=== PATIENT | male | born 1955 | race Two or more races ===

== ENCOUNTER 2020-06-14 07:21 | Outpatient (REF) | payer OTHER, SELFPAY ==
[2020-06-14 09:38] LABS: MANUAL DIFF FLAG NO
[2020-06-14 09:40] LABS: Basophils Absolute Auto 0.1 X10*3/uL (0.0-0.2); Basophils Percent Auto 1.3 % (0-2); Eosinophils Absolute Auto 0.2 X10*3/uL (0.0-0.4); Eosinophils Percent Auto 4.3 % (0-4); Hematocrit 40.6 % (42-52); Hemoglobin 13.3 g/dl (14.0-18.0); Imm Gran Abs Auto 0.01 X10*3/uL (0.00-0.03); Imm Gran Pct Auto 0.2 % (0.0-0.4); Lymphocytes Absolute Auto 1.6 X10*3/uL (1.2-4.9); Lymphocytes Percent Auto 29.5 % (20-40); Mean Corpuscular HGB Conc 32.8 g/dl (31.0-36.0); Mean Corpuscular Hemoglobin 30.1 pg (27.0-33.0); Mean Corpuscular Volume 91.9 fL (80-98); Mean Platelet Volume 11.5 fL (9.4-12.4); Monocytes Absolute Auto 0.4 X10*3/uL (0.1-1.2); Monocytes Percent Auto 7.6 % (2-11); Neutrophils Absolute Auto 3.1 X10*3/uL (2.0-8.3); Neutrophils Percent Auto 57.1 % (45-73); Platelet Count 188 X10*3/uL (160-400); Red Blood Count 4.42 X10*6/uL (4.60-5.80); White Blood Count 5.4 X10*3/uL (4.8-10.8)
[2020-06-14 09:58] LABS: Alanine Aminotransferase 37 U/L (0-40); Albumin Level 4.5 g/dL (3.5-5.0); Alkaline Phosphatase 53 U/L (39-117); Anion Gap 11 (12-20); Aspartate Amino Transferase 30 U/L (5-37); Bilirubin Total 0.7 mg/dL (0.0-1.0); Blood Urea Nitrogen 29 mg/dL (9-16); Calcium 9.4 mg/dL (8.4-10.2); Carbon Dioxide 31 mmol/L (22-29); Chloride 100 mmol/L (96-108); Cholesterol 157 mg/dL; Estimated Glomerular Filt Rate > 60; Glucose Fasting 92 mg/dL (60-99); HDL Cholesterol 56 mg/dL; LDL Cholesterol Calculated 89 mg/dl; Potassium 4.4 mmol/l (3.3-5.1); Sodium 138 mmol/L (135-145); Total Protein 7.4 g/dL (6.5-8.0); Triglycerides 64 mg/dL
[2020-06-14 10:19] LABS: Prostate Specific Antigen 0.24 ng/mL (<0.05-4.0)
== END 2020-06-14 07:22 | disposition home or self-care (01) ==
LOC: HO.LAB 07:21
PROVIDERS: Visit Provider Internal Medicine Medical Oncology
DX: E78.2 Mixed hyperlipidemia (principal); I10 Essential (primary) hypertension
CPT/HCPCS: 36415; 80053; 80061; 84153; 85025

== ENCOUNTER 2020-11-22 05:55 | Outpatient (REF) | payer OTHER, SELFPAY ==
[2020-11-22 06:28] LABS: MANUAL DIFF FLAG NO
[2020-11-22 06:40] LABS: Basophils Absolute Auto 0.1 X10*3/uL (0.0-0.2); Basophils Percent Auto 0.9 % (0-2); Eosinophils Absolute Auto 0.4 X10*3/uL (0.0-0.4); Eosinophils Percent Auto 6.3 % (0-4); Hematocrit 41.7 % (42-52); Hemoglobin 13.6 g/dl (14.0-18.0); Imm Gran Abs Auto 0.01 X10*3/uL (0.00-0.03); Imm Gran Pct Auto 0.2 % (0.0-0.4); Lymphocytes Absolute Auto 1.7 X10*3/uL (1.2-4.9); Lymphocytes Percent Auto 29.6 % (20-40); Mean Corpuscular HGB Conc 32.6 g/dl (31.0-36.0); Mean Corpuscular Hemoglobin 30.4 pg (27.0-33.0); Mean Corpuscular Volume 93.1 fL (80-98); Mean Platelet Volume 11.2 fL (9.4-12.4); Monocytes Absolute Auto 0.6 X10*3/uL (0.1-1.2); Monocytes Percent Auto 10.7 % (2-11); Neutrophils Absolute Auto 3.1 X10*3/uL (2.0-8.3); Neutrophils Percent Auto 52.3 % (45-73); Platelet Count 199 X10*3/uL (160-400); Red Blood Count 4.48 X10*6/uL (4.60-5.80); Red Cell Distribution Width 13.6 % (11.0-16.0); White Blood Count 5.9 X10*3/uL (4.8-10.8)
[2020-11-22 07:10] LABS: Alanine Aminotransferase 44 U/L (0-40); Albumin Level 4.6 g/dL (3.5-5.0); Alkaline Phosphatase 61 U/L (39-117); Anion Gap 14 (12-20); Aspartate Amino Transferase 36 U/L (5-37); Bilirubin Total 0.6 mg/dL (0.0-1.0); Blood Urea Nitrogen 24 mg/dL (9-16); Calcium 10.5 mg/dL (8.4-10.2); Carbon Dioxide 29 mmol/L (22-29); Chloride 103 mmol/L (96-108); Cholesterol 171 mg/dL; Estimated Glomerular Filt Rate > 60; Glucose Fasting 101 mg/dL (60-99); HDL Cholesterol 55 mg/dL; LDL Cholesterol Calculated 99 mg/dl; Potassium 4.8 mmol/L (3.3-5.1); Sodium 141 mmol/L (135-145); Total Protein 7.6 g/dL (6.5-8.0); Triglycerides 86 mg/dL
== END 2020-11-22 05:56 | disposition home or self-care (01) ==
LOC: HO.LAB 05:55
PROVIDERS: PCP Internal Medicine Medical Oncology; Visit Provider Internal Medicine Medical Oncology
DX: I10 Essential (primary) hypertension (principal); E78.2 Mixed hyperlipidemia
CPT/HCPCS: 36415; 80053; 80061; 85025

== ENCOUNTER 2021-03-19 07:58 | Outpatient (REF) | payer BC, SELFPAY ==
[2021-03-19 08:48] LABS: MANUAL DIFF FLAG NO
[2021-03-19 08:59] LABS: Basophils Absolute Auto 0.1 X10*3/uL (0.0-0.2); Basophils Percent Auto 0.9 % (0-2); Eosinophils Absolute Auto 0.2 X10*3/uL (0.0-0.4); Eosinophils Percent Auto 3.4 % (0-4); Hemoglobin 13.2 g/dl (14.0-18.0); Imm Gran Abs Auto 0.01 X10*3/uL (0.00-0.03); Imm Gran Pct Auto 0.2 % (0.0-0.4); Lymphocytes Absolute Auto 1.8 X10*3/uL (1.2-4.9); Lymphocytes Percent Auto 33.2 % (20-40); Mean Corpuscular Hemoglobin 30.4 pg (27.0-33.0); Mean Corpuscular Volume 92.2 fL (80-98); Mean Platelet Volume 11.1 fL (9.4-12.4); Monocytes Absolute Auto 0.5 X10*3/uL (0.1-1.2); Monocytes Percent Auto 9.2 % (2-11); Neutrophils Percent Auto 53.1 % (45-73); Platelet Count 188 X10*3/uL (160-400); Red Blood Count 4.34 X10*6/uL (4.60-5.80); Red Cell Distribution Width 13.6 % (11.0-16.0); White Blood Count 5.6 X10*3/uL (4.8-10.8)
[2021-03-19 09:35] LABS: Alanine Aminotransferase 33 U/L (0-40); Albumin Level 4.5 g/dL (3.5-5.0); Alkaline Phosphatase 58 U/L (39-117); Anion Gap 13 (12-20); Aspartate Amino Transferase 27 U/L (5-37); Bilirubin Total 0.7 mg/dL (0.0-1.0); Blood Urea Nitrogen 32 mg/dL (9-16); Carbon Dioxide 29 mmol/L (22-29); Chloride 103 mmol/L (96-108); Cholesterol 171 mg/dL; Estimated Glomerular Filt Rate 60; Glucose Fasting 94 mg/dL (60-99); HDL Cholesterol 59 mg/dL; LDL Cholesterol Calculated 99 mg/dl; Potassium 4.6 mmol/L (3.3-5.1); Sodium 140 mmol/L (135-145); Total Protein 7.6 g/dL (6.5-8.0); Triglycerides 68 mg/dL
[2021-03-19 09:50] LABS: Calcium 10.6 mg/dL (8.4-10.2)
== END 2021-03-19 07:59 | disposition home or self-care (01) ==
LOC: HO.LAB 07:58
PROVIDERS: PCP Internal Medicine Medical Oncology; Visit Provider Internal Medicine Medical Oncology
DX: I10 Essential (primary) hypertension (principal); E78.2 Mixed hyperlipidemia
CPT/HCPCS: 36415; 80053; 80061; 85025

== ENCOUNTER 2021-05-26 05:58 | Outpatient (REF) | payer OTHER, SELFPAY ==
[2021-05-26 06:05] LABS: MANUAL DIFF FLAG NO
[2021-05-26 06:11] LABS: Basophils Percent Auto 0.7 % (0-2); Eosinophils Absolute Auto 0.2 X10*3/uL (0.0-0.4); Eosinophils Percent Auto 3.4 % (0-4); Hematocrit 39.7 % (42-52); Hemoglobin 13.2 g/dl (14.0-18.0); Imm Gran Abs Auto 0.02 X10*3/uL (0.00-0.03); Imm Gran Pct Auto 0.3 % (0.0-0.4); Lymphocytes Absolute Auto 1.6 X10*3/uL (1.2-4.9); Lymphocytes Percent Auto 25.9 % (20-40); Mean Corpuscular HGB Conc 33.2 g/dl (31.0-36.0); Mean Corpuscular Hemoglobin 30.8 pg (27.0-33.0); Mean Corpuscular Volume 92.8 fL (80-98); Mean Platelet Volume 11.2 fL (9.4-12.4); Monocytes Absolute Auto 0.5 X10*3/uL (0.1-1.2); Monocytes Percent Auto 8.5 % (2-11); Neutrophils Absolute Auto 3.7 X10*3/uL (2.0-8.3); Neutrophils Percent Auto 61.2 % (45-73); Platelet Count 166 X10*3/uL (160-400); Red Blood Count 4.28 X10*6/uL (4.60-5.80); White Blood Count 6.1 X10*3/uL (4.8-10.8)
[2021-05-26 06:46] LABS: Alanine Aminotransferase 33 U/L (0-40); Albumin Level 4.4 g/dL (3.5-5.0); Alkaline Phosphatase 64 U/L (39-117); Anion Gap 12 (12-20); Aspartate Amino Transferase 31 U/L (5-37); Bilirubin Total 0.6 mg/dL (0.0-1.0); Blood Urea Nitrogen 28 mg/dL (9-16); Carbon Dioxide 31 mmol/L (22-29); Chloride 103 mmol/L (96-108); Cholesterol 158 mg/dL; Estimated Glomerular Filt Rate 55; Glucose Fasting 96 mg/dL (60-99); HDL Cholesterol 50 mg/dL; LDL Cholesterol Calculated 91 mg/dl; Potassium 4.5 mmol/L (3.3-5.1); Sodium 141 mmol/L (135-145); Total Protein 7.5 g/dL (6.5-8.0); Triglycerides 85 mg/dL
[2021-05-31 17:01] LABS: Parathyroid Hormone Related Pr 12 pg/mL (11-20)
== END 2021-05-26 05:59 | disposition home or self-care (01) ==
LOC: HO.LAB 05:58
PROVIDERS: PCP Internal Medicine Medical Oncology; Visit Provider Internal Medicine Medical Oncology
DX: M25.561 Pain in right knee (principal); I10 Essential (primary) hypertension; E78.2 Mixed hyperlipidemia
CPT/HCPCS: 36415; 80053; 80061; 83519; 85025

== ENCOUNTER 2021-09-19 07:25 | Outpatient (REF) | payer OTHER, SELFPAY ==
[2021-09-19 07:54] LABS: MANUAL DIFF FLAG NO
[2021-09-19 08:21] LABS: Basophils Absolute Auto 0.1 X10*3/uL (0.0-0.2); Basophils Percent Auto 0.9 % (0-2); Eosinophils Absolute Auto 0.3 X10*3/uL (0.0-0.4); Eosinophils Percent Auto 4.5 % (0-4); Hemoglobin 13.7 g/dl (14.0-18.0); Imm Gran Abs Auto 0.01 X10*3/uL (0.00-0.03); Imm Gran Pct Auto 0.2 % (0.0-0.4); Lymphocytes Absolute Auto 1.8 X10*3/uL (1.2-4.9); Lymphocytes Percent Auto 30.6 % (20-40); Mean Corpuscular HGB Conc 33.4 g/dl (31.0-36.0); Mean Corpuscular Hemoglobin 30.9 pg (27.0-33.0); Mean Corpuscular Volume 92.3 fL (80.0-98.0); Mean Platelet Volume 11.4 fL (9.4-12.4); Monocytes Absolute Auto 0.5 X10*3/uL (0.1-1.2); Monocytes Percent Auto 8.6 % (2-11); Neutrophils Absolute Auto 3.2 x10*3/uL (2.0-8.3); Neutrophils Percent Auto 55.2 % (45-73); Platelet Count 171 X10*3/uL (160-400); Red Blood Count 4.44 X10*6/uL (4.60-5.80); Red Cell Distribution Width 13.4 % (11.0-16.0); White Blood Count 5.8 X10*3/uL (4.8-10.8)
[2021-09-19 09:15] LABS: Alanine Aminotransferase 31 U/L (0-40); Albumin Level 4.4 g/dL (3.5-5.0); Alkaline Phosphatase 63 U/L (39-117); Anion Gap 13 (12-20); Aspartate Amino Transferase 29 U/L (5-37); Bilirubin Total 0.5 mg/dL (0.0-1.0); Blood Urea Nitrogen 28 mg/dL (9-16); Calcium 10.5 mg/dL (8.4-10.2); Carbon Dioxide 30 mmol/L (22-29); Chloride 102 mmol/L (96-108); Cholesterol 175 mg/dL; Estimated Glomerular Filt Rate > 60; Glucose Fasting 90 mg/dL (60-99); HDL Cholesterol 56 mg/dL; LDL Cholesterol Calculated 104 mg/dl; Potassium 4.6 mmol/L (3.3-5.1); Sodium 140 mmol/L (135-145); Total Protein 7.6 g/dL (6.5-8.0); Triglycerides 75 mg/dL
== END 2021-09-19 07:26 | disposition home or self-care (01) ==
LOC: HO.LAB 07:25
PROVIDERS: PCP Internal Medicine Medical Oncology; Visit Provider Internal Medicine Medical Oncology
DX: E78.2 Mixed hyperlipidemia (principal)
CPT/HCPCS: 36415; 80053; 80061; 85025

== ENCOUNTER 2021-12-12 07:16 | Outpatient (REF) | payer OTHER, SELFPAY ==
[2021-12-12 07:33] LABS: MANUAL DIFF FLAG NO
[2021-12-12 07:40] LABS: Basophils Absolute Auto 0.1 X10*3/uL (0.0-0.2); Eosinophils Absolute Auto 0.2 X10*3/uL (0.0-0.4); Hematocrit 40.4 % (42.0-52.0); Hemoglobin 13.3 g/dl (14.0-18.0); Imm Gran Abs Auto 0.01 X10*3/uL (0.00-0.03); Imm Gran Pct Auto 0.2 % (0.0-0.4); Lymphocytes Absolute Auto 1.7 X10*3/uL (1.2-4.9); Lymphocytes Percent Auto 26.8 % (20-40); Mean Corpuscular HGB Conc 32.9 g/dl (31.0-36.0); Mean Corpuscular Hemoglobin 30.6 pg (27.0-33.0); Mean Corpuscular Volume 92.9 fL (80.0-98.0); Mean Platelet Volume 11.4 fL (9.4-12.4); Monocytes Absolute Auto 0.6 X10*3/uL (0.1-1.2); Monocytes Percent Auto 8.8 % (2-11); Neutrophils Absolute Auto 3.8 x10*3/uL (2.0-8.3); Neutrophils Percent Auto 60.2 % (45-73); Platelet Count 166 X10*3/uL (160-400); Red Blood Count 4.35 X10*6/uL (4.60-5.80); Red Cell Distribution Width 13.1 % (11.0-16.0); White Blood Count 6.2 X10*3/uL (4.8-10.8)
[2021-12-12 08:19] LABS: Alanine Aminotransferase 29 U/L (0-40); Albumin Level 4.3 g/dL (3.5-5.0); Alkaline Phosphatase 59 U/L (39-117); Anion Gap 11 (12-20); Aspartate Amino Transferase 27 U/L (5-37); Bilirubin Total 0.5 mg/dL (0.0-1.0); Blood Urea Nitrogen 24 mg/dL (9-16); Calcium 10.4 mg/dL (8.4-10.2); Carbon Dioxide 30 mmol/L (22-29); Chloride 103 mmol/L (96-108); Cholesterol 167 mg/dL; Estimated Glomerular Filt Rate 55; Glucose Fasting 99 mg/dL (60-99); HDL Cholesterol 56 mg/dL; LDL Cholesterol Calculated 99 mg/dl; Potassium 5.2 mmol/L (3.3-5.1); Sodium 139 mmol/L (135-145); Total Protein 7.5 g/dL (6.5-8.0); Triglycerides 62 mg/dL
== END 2021-12-12 07:17 | disposition home or self-care (01) ==
LOC: HO.LAB 07:16
PROVIDERS: PCP Internal Medicine Medical Oncology; Visit Provider Internal Medicine Medical Oncology
DX: I10 Essential (primary) hypertension (principal); E78.2 Mixed hyperlipidemia
CPT/HCPCS: 36415; 80053; 80061; 85025

== ENCOUNTER 2022-01-28 07:31 | Outpatient (REF) | payer OTHER, SELFPAY ==
[2022-01-28 08:28] LABS: Fibrinogen 452 MG/DL (259-690); INTERNATIONAL NORM RATIO 0.9 (0.9-1.1); Prothrombin Time 10.7 SEC (10.0-13.1)
[2022-01-28 08:31] LABS: Partial Thromboplastin Time 31.8 SEC (24.1-38.0)
== END 2022-01-28 07:32 | disposition home or self-care (01) ==
LOC: HO.LAB 07:31
PROVIDERS: PCP Internal Medicine Medical Oncology; Visit Provider Internal Medicine Medical Oncology
DX: I10 Essential (primary) hypertension (principal); E78.2 Mixed hyperlipidemia; E83.52 Hypercalcemia
CPT/HCPCS: 36415; 85384; 85610; 85730

== ENCOUNTER 2022-06-03 07:40 | Outpatient (REF) | payer OTHER, SELFPAY ==
[2022-06-03 08:00] LABS: MANUAL DIFF FLAG NO
[2022-06-03 08:09] LABS: Basophils Percent Auto 0.7 % (0-2); Eosinophils Absolute Auto 0.2 X10*3/uL (0.0-0.4); Eosinophils Percent Auto 2.9 % (0-4); Hematocrit 38.8 % (42.0-52.0); Hemoglobin 12.8 g/dl (14.0-18.0); Imm Gran Abs Auto 0.01 X10*3/uL (0.00-0.03); Imm Gran Pct Auto 0.2 % (0.0-0.4); Lymphocytes Absolute Auto 1.4 X10*3/uL (1.2-4.9); Lymphocytes Percent Auto 24.4 % (20-40); Mean Corpuscular Hemoglobin 30.3 pg (27.0-33.0); Mean Corpuscular Volume 91.9 fL (80.0-98.0); Mean Platelet Volume 10.7 fL (9.4-12.4); Monocytes Absolute Auto 0.5 X10*3/uL (0.1-1.2); Monocytes Percent Auto 8.6 % (2-11); Neutrophils Absolute Auto 3.7 x10*3/uL (2.0-8.3); Neutrophils Percent Auto 63.2 % (45-73); Platelet Count 150 X10*3/uL (160-400); Red Blood Count 4.22 X10*6/uL (4.60-5.80); Red Cell Distribution Width 13.1 % (11.0-16.0); White Blood Count 5.9 X10*3/uL (4.8-10.8)
[2022-06-03 08:46] LABS: Alanine Aminotransferase 23 U/L (0-40); Albumin Level 4.3 g/dL (3.5-5.0); Alkaline Phosphatase 69 U/L (39-117); Anion Gap 15 (12-20); Aspartate Amino Transferase 25 U/L (5-37); Bilirubin Total 0.7 mg/dL (0.0-1.0); Blood Urea Nitrogen 24 mg/dL (9-16); Calcium 9.7 mg/dL (8.4-10.2); Carbon Dioxide 27 mmol/L (22-29); Chloride 102 mmol/L (96-108); Cholesterol 157 mg/dL; Estimated Glomerular Filt Rate > 60; Glucose Fasting 92 mg/dL (60-99); HDL Cholesterol 50 mg/dL; LDL Cholesterol Calculated 95 mg/dl; Potassium 4.6 mmol/L (3.3-5.1); Sodium 139 mmol/L (135-145); Total Protein 7.2 g/dL (6.5-8.0); Triglycerides 60 mg/dL
[2022-06-03 09:06] LABS: Prostate Specific Antigen 0.22 ng/mL (<0.05-4.0); Vitamin D 25-OH Total 11.9 ng/mL (>30)
== END 2022-06-03 07:41 | disposition home or self-care (01) ==
LOC: HO.LAB 07:40
PROVIDERS: PCP Internal Medicine Medical Oncology; Visit Provider Internal Medicine Medical Oncology
DX: Z00.00 Encounter for general adult medical examination without abnormal findings (principal); Z12.5 Encounter for screening for malignant neoplasm of prostate; E78.2 Mixed hyperlipidemia; E83.52 Hypercalcemia; N40.0 Benign prostatic hyperplasia without lower urinary tract symptoms
CPT/HCPCS: 36415; 80053; 80061; 82306; 84153; 85025

== ENCOUNTER 2022-09-09 08:04 | Outpatient (REF) | payer OTHER, SELFPAY ==
[2022-09-09 08:19] LABS: MANUAL DIFF FLAG NO
[2022-09-09 08:30] LABS: Basophils Absolute Auto 0.1 X10*3/uL (0.0-0.2); Basophils Percent Auto 1.2 % (0-2); Eosinophils Absolute Auto 0.2 X10*3/uL (0.0-0.4); Eosinophils Percent Auto 3.8 % (0-4); Hematocrit 39.5 % (42.0-52.0); Imm Gran Abs Auto 0.02 X10*3/uL (0.00-0.03); Imm Gran Pct Auto 0.3 % (0.0-0.4); Lymphocytes Absolute Auto 1.8 X10*3/uL (1.2-4.9); Lymphocytes Percent Auto 31.9 % (20-40); Mean Corpuscular HGB Conc 32.9 g/dl (31.0-36.0); Mean Corpuscular Hemoglobin 30.4 pg (27.0-33.0); Mean Corpuscular Volume 92.3 fL (80.0-98.0); Mean Platelet Volume 11.1 fL (9.4-12.4); Monocytes Absolute Auto 0.6 X10*3/uL (0.1-1.2); Monocytes Percent Auto 9.9 % (2-11); Neutrophils Absolute Auto 3.1 x10*3/uL (2.0-8.3); Neutrophils Percent Auto 52.9 % (45-73); Platelet Count 167 X10*3/uL (160-400); Red Blood Count 4.28 X10*6/uL (4.60-5.80); Red Cell Distribution Width 13.2 % (11.0-16.0); White Blood Count 5.8 X10*3/uL (4.8-10.8)
[2022-09-09 09:08] LABS: Alanine Aminotransferase 26 U/L (0-40); Albumin Level 4.2 g/dL (3.5-5.0); Alkaline Phosphatase 61 U/L (39-117); Anion Gap 13 (12-20); Aspartate Amino Transferase 26 U/L (5-37); Bilirubin Total 0.6 mg/dL (0.0-1.0); Blood Urea Nitrogen 28 mg/dL (9-16); Calcium 9.6 mg/dL (8.4-10.2); Carbon Dioxide 28 mmol/L (22-29); Chloride 106 mmol/L (96-108); Cholesterol 222 mg/dL; Estimated Glomerular Filt Rate > 60; Glucose Fasting 94 mg/dL (60-99); HDL Cholesterol 56 mg/dL; LDL Cholesterol Calculated 153 mg/dl; Potassium 4.5 mmol/L (3.3-5.1); Sodium 142 mmol/L (135-145); Triglycerides 69 mg/dL
[2022-09-09 09:22] LABS: Prostate Specific Antigen 0.34 ng/mL (<0.05-4.0); Vitamin D 25-OH Total 6.7 ng/mL (>30)
== END 2022-09-09 08:05 | disposition home or self-care (01) ==
LOC: HO.LAB 08:04
PROVIDERS: PCP Internal Medicine Medical Oncology; Visit Provider Internal Medicine Medical Oncology
DX: Z00.00 Encounter for general adult medical examination without abnormal findings (principal); Z12.5 Encounter for screening for malignant neoplasm of prostate; E78.2 Mixed hyperlipidemia; E83.52 Hypercalcemia; N40.0 Benign prostatic hyperplasia without lower urinary tract symptoms
CPT/HCPCS: 36415; 80053; 80061; 82306; 84153; 85025

== ENCOUNTER 2022-12-09 07:06 | Outpatient (REF) | payer OTHER, SELFPAY ==
[2022-12-09 07:19] LABS: MANUAL DIFF FLAG NO
[2022-12-09 09:01] LABS: Basophils Absolute Auto 0.1 X10*3/uL (0.0-0.2); Basophils Percent Auto 0.7 % (0-2); Eosinophils Absolute Auto 0.2 X10*3/uL (0.0-0.4); Eosinophils Percent Auto 2.3 % (0-4); Hematocrit 39.7 % (42.0-52.0); Hemoglobin 13.1 g/dl (14.0-18.0); Imm Gran Abs Auto 0.02 X10*3/uL (0.00-0.03); Imm Gran Pct Auto 0.2 % (0.0-0.4); Lymphocytes Absolute Auto 1.9 X10*3/uL (1.2-4.9); Lymphocytes Percent Auto 22.8 % (20-40); Mean Corpuscular Hemoglobin 30.8 pg (27.0-33.0); Mean Corpuscular Volume 93.2 fL (80.0-98.0); Mean Platelet Volume 11.9 fL (9.4-12.4); Monocytes Absolute Auto 0.6 X10*3/uL (0.1-1.2); Neutrophils Absolute Auto 5.4 x10*3/uL (2.0-8.3); Platelet Count 168 X10*3/uL (160-400); Red Blood Count 4.26 X10*6/uL (4.60-5.80); Red Cell Distribution Width 13.3 % (11.0-16.0); White Blood Count 8.1 X10*3/uL (4.8-10.8)
[2022-12-09 09:31] LABS: Alanine Aminotransferase 19 U/L (0-40); Albumin Level 4.2 g/dL (3.5-5.0); Alkaline Phosphatase 61 U/L (39-117); Anion Gap 14 (12-20); Aspartate Amino Transferase 22 U/L (5-37); Blood Urea Nitrogen 31 mg/dL (9-16); Calcium 10.1 mg/dL (8.4-10.2); Carbon Dioxide 28 mmol/L (22-29); Chloride 103 mmol/L (96-108); Cholesterol 231 mg/dL; Estimated Glomerular Filt Rate 54; Glucose Fasting 80 mg/dL (60-99); HDL Cholesterol 57 mg/dL; LDL Cholesterol Calculated 159 mg/dl; Potassium 4.4 mmol/L (3.3-5.1); Sodium 141 mmol/L (135-145); Total Protein 7.1 g/dL (6.5-8.0); Triglycerides 77 mg/dL
== END 2022-12-09 07:07 | disposition home or self-care (01) ==
LOC: HO.LAB 07:06
PROVIDERS: PCP Internal Medicine Medical Oncology; Visit Provider Internal Medicine Medical Oncology
DX: I10 Essential (primary) hypertension (principal); E78.2 Mixed hyperlipidemia
CPT/HCPCS: 36415; 80053; 80061; 85025

== ENCOUNTER 2023-05-12 07:23 | Outpatient (REF) | payer OTHER, SELFPAY ==
[2023-05-12 08:07] LABS: MANUAL DIFF FLAG NO
[2023-05-12 09:02] LABS: Basophils Absolute Auto 0.1 X10*3/uL (0.0-0.2); Basophils Percent Auto 1.2 % (0-2); Eosinophils Absolute Auto 0.2 X10*3/uL (0.0-0.4); Eosinophils Percent Auto 3.4 % (0-4); Hemoglobin 13.2 g/dl (14.0-18.0); Imm Gran Abs Auto 0.01 X10*3/uL (0.00-0.03); Imm Gran Pct Auto 0.2 % (0.0-0.4); Lymphocytes Absolute Auto 1.8 X10*3/uL (1.2-4.9); Lymphocytes Percent Auto 30.1 % (20-40); Mean Corpuscular Hemoglobin 30.8 pg (27.0-33.0); Mean Corpuscular Volume 93.5 fL (80.0-98.0); Mean Platelet Volume 11.2 fL (9.4-12.4); Monocytes Absolute Auto 0.6 X10*3/uL (0.1-1.2); Monocytes Percent Auto 9.3 % (2-11); Neutrophils Absolute Auto 3.3 x10*3/uL (2.0-8.3); Neutrophils Percent Auto 55.8 % (45-73); Platelet Count 191 X10*3/uL (160-400); Red Blood Count 4.28 X10*6/uL (4.60-5.80); Red Cell Distribution Width 13.5 % (11.0-16.0); White Blood Count 5.9 X10*3/uL (4.8-10.8)
[2023-05-12 09:52] LABS: Alanine Aminotransferase 27 U/L (0-40); Albumin Level 4.3 g/dL (3.5-5.0); Alkaline Phosphatase 56 U/L (39-117); Anion Gap 14 (12-20); Aspartate Amino Transferase 25 U/L (5-37); Bilirubin Total 0.6 mg/dL (0.0-1.0); Blood Urea Nitrogen 25 mg/dL (9-16); Calcium 10.3 mg/dL (8.4-10.2); Carbon Dioxide 29 mmol/L (22-29); Chloride 105 mmol/L (96-108); Cholesterol 219 mg/dL (<200); Estimated Glomerular Filt Rate 59; Glucose Random 90 mg/dL (60-115); HDL Cholesterol 61 mg/dL (>40); LDL Cholesterol Calculated 144 mg/dL (<100); Potassium 4.7 mmol/L (3.3-5.1); Sodium 143 mmol/L (135-145); Total Protein 7.5 g/dL (6.5-8.0); Triglycerides 72 mg/dL (<150)
[2023-05-12 09:54] LABS: Vitamin D 25-OH Total 56.3 ng/mL (>30)
[2023-05-12 09:55] LABS: Prostate Specific Antigen 0.34 ng/mL (<0.05-4.0)
== END 2023-05-12 07:24 | disposition home or self-care (01) ==
LOC: HO.LAB 07:23
PROVIDERS: PCP Internal Medicine Medical Oncology; Visit Provider Internal Medicine Medical Oncology
DX: Z12.5 Encounter for screening for malignant neoplasm of prostate (principal); I10 Essential (primary) hypertension; E78.2 Mixed hyperlipidemia; E55.9 Vitamin D deficiency, unspecified; N40.0 Benign prostatic hyperplasia without lower urinary tract symptoms
CPT/HCPCS: 36415; 80053; 80061; 82306; 84153; 85025

== ENCOUNTER 2024-05-10 07:14 | Outpatient (REF) | payer OTHER, SELFPAY ==
[2024-05-10 07:33] LABS: MANUAL DIFF FLAG NO
[2024-05-10 08:00] LABS: Basophils Absolute Auto 0.1 X10*3/uL (0.0-0.2); Eosinophils Absolute Auto 0.2 X10*3/uL (0.0-0.4); Eosinophils Percent Auto 2.8 % (0-4); Hematocrit 38.9 % (42.0-52.0); Hemoglobin 12.7 g/dl (14.0-18.0); Imm Gran Abs Auto 0.02 X10*3/uL (0.00-0.03); Imm Gran Pct Auto 0.3 % (0.0-0.4); Lymphocytes Absolute Auto 1.7 X10*3/uL (1.2-4.9); Lymphocytes Percent Auto 27.9 % (20-40); Mean Corpuscular HGB Conc 32.6 g/dl (31.0-36.0); Mean Corpuscular Hemoglobin 30.1 pg (27.0-33.0); Mean Corpuscular Volume 92.2 fL (80.0-98.0); Mean Platelet Volume 10.8 fL (9.4-12.4); Monocytes Absolute Auto 0.6 X10*3/uL (0.1-1.2); Monocytes Percent Auto 9.6 % (2-11); Neutrophils Absolute Auto 3.6 x10*3/uL (2.0-8.3); Neutrophils Percent Auto 58.4 % (45-73); Platelet Count 195 X10*3/uL (160-400); Red Blood Count 4.22 X10*6/uL (4.60-5.80); Red Cell Distribution Width 13.4 % (11.0-16.0); White Blood Count 6.1 X10*3/uL (4.8-10.8)
[2024-05-10 08:31] LABS: Alanine Aminotransferase 30 U/L (0-40); Albumin Level 4.2 g/dL (3.5-5.0); Alkaline Phosphatase 57 U/L (39-117); Anion Gap 10 (12-20); Aspartate Amino Transferase 27 U/L (5-37); Bilirubin Total 0.4 mg/dL (0.0-1.0); Blood Urea Nitrogen 32 mg/dL (9-16); Calcium 10.5 mg/dL (8.4-10.2); Carbon Dioxide 31 mmol/L (22-29); Chloride 104 mmol/L (96-108); Cholesterol 221 mg/dL (<200); Estimated Glomerular Filt Rate 52; Glucose Fasting 97 mg/dL (60-99); HDL Cholesterol 62 mg/dL (>40); LDL Cholesterol Calculated 142 mg/dL (<100); Sodium 140 mmol/L (135-145); Total Protein 7.5 g/dL (6.5-8.0); Triglycerides 88 mg/dL (<150)
[2024-05-10 08:37] LABS: Prostate Specific Antigen 0.35 ng/mL (<0.05-4.0)
[2024-05-10 08:50] LABS: Vitamin D 25-OH Total 44.9 ng/mL (>30)
== END 2024-05-10 07:15 | disposition home or self-care (01) ==
LOC: HO.LAB 07:14
PROVIDERS: PCP Internal Medicine Medical Oncology; Visit Provider Internal Medicine Medical Oncology
DX: E78.2 Mixed hyperlipidemia (principal); N40.0 Benign prostatic hyperplasia without lower urinary tract symptoms; E55.9 Vitamin D deficiency, unspecified; Z12.5 Encounter for screening for malignant neoplasm of prostate
CPT/HCPCS: 36415; 80053; 80061; 82306; 84153; 85025

== ENCOUNTER 2024-11-01 07:04 | Outpatient (REF) | payer OTHER, SELFPAY ==
--- OUTSIDE RECORDS SUMMARY | 2024-11-01 07:07 | XMS_ITS ---
Author Organization Damion Vega III, MD Address [address] [facility] [place] [address] Care Team Providers Care Medical Field Representative Name Role Phone Damion Vega Primary Care Provider Allergies Allergen (clinical drug [...] Active Terbinafine HCl 1 % 1 application Reporting Specialist ally Once a day 11/23/2023 Active Vitamin [...] Date Provider Diagnosis Damion Vega III, MD [address] [place] [address] [address] [place] [address] 05/27/2024 Damion Vega Essential hypertensi on I10 [...] 02/16/2020 Terbinafine HCl 1 % 1 application Reporting Specialist ally Once a day 11/23/2023 Vitamin D3 [...] Up: 4 Months, Reason: OV Provider Name:Damion Vega, 01/26/2025 02:30:00 PM, [address] [place] [address] ALBER DORANTES, [place], [phone], Provider Name:Damion Vega, 05/29/2025 01:45:00 PM, [address] [place] [address] ALBER DORANTES, SHAKA [place], [phone], Progress Notes * Leobardo DEOB:[birth year] (68 yo M)Acc No.[id number]:05/27/2024 Progress Notes Patient:?Tyler DE Provider:?Damion Vega MD :1955???Age:68 Y???Sex:Male Misha e:05/27/2024 Address:[address] [place] [address] [id number] Subjective: * Chief Complaints: * ???Annual Exam * HPI: ???Depression Screening:?PHQ-9?Little interest or pleasure in doing things?Not at all ?Feeling down, depressed, or hopeless?Not at all ?Trouble falling or staying asleep, or sleeping too much?Not at all ?Feeling tired or having little energy?Not at all ?Poor appetite or overeating?Not at all ?Feeling bad about yourself or that you are a failure, or have let yourself or your family down?Not at all ?Trouble concentrating on things, such as reading the newspaper or watching television?Not at all ?Moving or speaking so slowly that other people could have noticed; or the opposite, being so fidgety or restless that you have been moving around a lot more than usual?Not at all ?Thoughts that you would be better off or of hurting yourself in some way?Not at all ?Total Score?0 ???COVID-19 Screening:?Questions?Have you experienced fever, chills, cough, sore throat, shortness of breath, difficulty breathing, muscle aches, loss of taste or smell??No ?Have you been exposed to the virus within the last 10 days??No ?Have you travelled internationally in the last 10 days??No ?Have you been exposed to COVID-19 in the past??No ???SDOH Questions:?SDOH Questions?In the past year have you been worried about losing your housing??No ?In the past year have you or any family members you live with been unable to get any of the following when it was really needed? Check all that apply:?None ???Fall Risk Screening:?Fall History?Have you had any falls with injury in the past year??No ?Have you had two or more falls in the past year??No ?Fall Risk Assessment:?No falls in the past year ???:? The patient, a 68-year-old male, has been [...] smoked. Blood Sugar Level is 97. * ROS:?General/Constitutional:?pain?only normal aches and pains.?Chills?denies.?Fatigue?admits.?Fever?denies.?ENT:?Decreased hearing?denies.?Respiratory:?Cough?denies.?Cardiovascular:?Chest pain with exertion?denies.?Dyspnea on exertion?denies.?Shortness of breath?denies.?Gastrointestinal:?Constipation?occasional.?Decreased appetite?denies.?Diarrhea?denies.?Heartburn?denies.?Nausea?denies.?Rectal bleeding?denies.?Vomiting?denies.?Hematology:?bruising?denies.?petechiae?denies.?Swollen glands?none have been noted.?Genitourinary:?Frequent urination?once a night.?Musculoskeletal:?Muscle aches?denies.?Painful joints?denies.?Sciatica?denies.?Weakness?denies.?Skin:?Itching?denies.?Rash?denies.?Skin lesion(s)?denies.?Neurologic:?Difficulty speaking?denies.?Dizziness?denies.?Headache?denies.?Low back pain?denies.?Psychiatric:?Depressed mood?denies.?Cancer Self-Management:?Denies?Colonoscopy.? * Medical History:? * Surgical History:?injury to a finger on the left hand requiring surgery 1999No history * Hospitalization/Major Diagno stic Procedure:?No history * Family History:?Father: dece ased 97 yrs, Alcoholism, cigarette smoker.?Mother: , cancer, diagnosed with Cancer.?1 brother(s) , 6 sister(s) . 1 son(s) - healthy. .? His brother at 68 of some type of cancer in [place]. His sisters are alive and well. His son and grandchildren are alive and well. He is not aware of any hereditary malignancies in his family. * Social History:?Tobacco Use:?Tobacco Use/Smoking?.?Tobacco Control (Standard)?Tobacco use:?Nonsmoker ?Additional Findings: Tobacco non-user?Aggressive nonsmoker ???Drugs/Alcohol:?Drugs?Have you used drugs other than those for medical reasons in the past 12 months??No ???Miscellaneous:?Domestic violence: no. 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 He is not but has a relationship with [facility]. They have a son who lives in [place] and 2 grandchildren, all of whom are healthy. He refuses to have a colonoscopy. Work: Works for [employer] Smoking: Never smoked. * Medications:?TakingVitamin D 3 25 MCG (1000 UT) Tablet TAKE 1 [...] reviewed and reconciled with the patient * Allergies:?No Known Drug All ergyno[Allergies Verified] Objective: * Vitals:?Ht: 67, Wt:130, BMI: 20.36, BP:134/75, HR:68, Temp:97.2, Wt-k.97. * ???Past Orders: Lab:Complete Blood Count Aut o Diff * Collection Date 05/10/2024 05/12/2023 12/09/2022 Collection Time 07:32 AM 07:59 AM 07:18 AM Order Date 05/10/2024 05/12/2023 12/09/2022 White Blood Count 6.1 (Ref Range: 4.8-10.8 X10*3/uL) 5.9 (Ref Range: 4.8-10.8 X10*3/uL) 8.1 (Ref Range: 4.8-10.8 X10*3/uL) Red Blood Count 4.22?L (Ref Range: 4.60-5.80 X10*6/uL) 4.28?L (Ref Range: 4.60-5.80 X10*6/uL) 4.26?L (Ref Range: 4.60-5.80 X10*6/uL) Hemoglobin 12.7?L (Ref Range: 14.0-18.0 g/dl) 13.2?L (Ref Range: 14.0-18.0 g/dl) 13.1?L (Ref Range: 14.0-18.0 g/dl) Hematocrit 38.9?L (Ref Range: 42.0-52.0 %) 40.0?L (Ref Range: 42.0-52.0 %) 39.7?L (Ref Range: 42.0-52.0 %) Mean Corpuscular Volume [...] <150 mg/dL) 77 (Ref Range: mg/dL) Cholesterol 221?H (Ref Range: <200 mg/dL) 219?H (Ref Range: <200 mg/dL) 231 (Ref Range: mg/dL) LDL Cholesterol Calculated 142?H (Ref Range: <100 mg/dL) 144?H (Ref Range: <100 mg/dL) 159 (Ref Range: mg/dl) HDL Cholesterol 62 (Ref Range: >40 mg/dL) 61 (Ref Range: >40 mg/dL) 57 (Ref Range: mg/dL) * Lab:Comprehensive [place]. Pane l Fast * Collection Date 05/10/2024 [...] 106 (Ref Range: 96-108 mmol/L) Carbon Dioxide 31?H (Ref Range: 22-29 mmol/L) 28 (Ref Range: 22-29 mmol/L) 28 (Ref Range: 22-29 mmol/L) Anion Gap 10?L (Ref Range: 12-20) 14 (Ref Range: 12-20) 13 (Ref Range: 12-20) Blood Urea Nitrogen 32?H (Ref Range: 9-16 mg/dL) 31?H (Ref Range: 9-16 mg/dL) 28?H (Ref Range: 9-16 mg/dL) Creatinine 1.37 (Ref Range: 0.5-1.4 mg/dL) 1.32 (Ref Range: 0.5-1.4 mg/dL) 1.16 (Ref Range: 0.5-1.4 mg/dL) Estimated Glomerular Filt Rate 52 54 > 60 Glucose Fasting 97 (Ref Range: 60-99 mg/dL) 80 (Ref Range: 60-99 mg/dL) 94 (Ref Range: 60-99 mg/dL) Calcium 10.5?H (Ref Range: 8.4-10.2 mg/dL) 10.1 (Ref Range: 8.4-10.2 mg/dL) 9.6 (Ref Range: 8.4-10.2 mg/dL) * Examination: ???General Examination: ?GENERAL APPEARANCE:?pleasant, well nourished, well developed, in no acute distress, calm and relaxed, man.?HEAD:?atraumatic, normocephalic.?EYES:?eomi, perrla, anicteric, conjugate.?EARS:?normal.?NOSE:?septum intact.?ORAL CAVITY:?normal, unremarkable.?NECK/THYROID:?no jugular venous distention, no carotid bruit, thyroid normal.?LYMPH NODES:?no enlarged lymph nodes,spleen normal.?SKIN:?no suspicious lesions, anicteric.?HEART:?no clicks, gallops, murmurs, or rubs, regular rhythm, S1, S2 normal, no s3, or vascular bruits.?LUNGS:?clear to auscultation .?BREASTS:??no masses palpable bilaterally.?ABDOMEN:?bowel sounds normal, no ascites, no organomegaly, no mass.?RECTAL EXAM:?Unremarkable.?MUSCULOSKELETAL:?extremities unremarkable, no clubbing, cyanosis or edema.?PERIPHERAL PULSES:?normal.?NEUROLOGIC:?alert and oriented, cranial nerves 2-12 grossly intact, deep tendon reflexes 2+ symmetrical, motor strength normal upper and lower extremities, sensory exam intact.?PSYCH:?alert, oriented.? : ???Blood pressure check:Normal Blood work:Normal Prostate check:Normal Hernia check:No hernias detected Stool test:No blood detected. ??? Assessment: * Assessment: 1.?Essential hypertension - I10 (Primary)???Notes :His blood pressure today is 34/75, and no change in his regimen is needed.???2.?Mixed hyperlipidemia - E78.2???Notes :A fasting lipid profile has been ordered prior to his next visit.???3.?Pityriasis alba - L30.5???Notes :He will be treated as needed. He has no symptoms today. The condition is very mild.I refilled his triamcinolone???4.?Gout, unspecified - M10.9???Notes :No episodes of gout have taken place. A uric acid level will be checked periodically.???5.?BPH (benign prostatic hyperplasia) - N40.0???Notes :He says he rises from sleep once a night to urinate at most. We discussed lifestyle modification as a way to reduce nocturia.??? Plan: * Treatment: 2.?Others? Continue predniSONE Tablet, 20 MG, TAKE 1 TABLET BY MOUTH EVERY DAY FOR 7 DAYS;?Continue Vitamin D3 Tablet, 25 MCG (1000 UT), TAKE 1 TABLET BY MOUTH EVERY DAY FOR 30 DAYS;?Continue Terbinafine HCl Cream, 1 %, 1 application, Externally, Once a day;?Continue Lisinopril-hydroCHLOROthiazide Tablet, 20-25 MG, 1 tablet, Orally, Once a day;?Continue Vitamin D Tablet, 25 MCG (1000 UT), 1 tablet, Orally, Once a day;?Continue Aleve Tablet, 220 MG, 1 tablet with food or milk as needed, Orally, every 12 hrs;?Continue Atorvastatin Calcium Tablet, 10 MG, TAKE 1 TABLET BY MOUTH EVERY DAY;?Continue Triamcinolone Acetonide Cream, 0.5 %, APPLY EXTERNALLY 3 TIMES A DAY FOR 7 DAYS.?? * Labs:? * ?Lab: URINE DIP STICK (C ollection Date & Time - 05/27/2024) ? Value Reference Range ?SG 1.010 1.005 - 1.025 * ?pH 6.5 5.0 - 9.0 * ?EDMAR Negative Negative - * ?NIT Negative Negative - * ?PRO 15 Negative - Trac e * ?GLU Negative Negative - * ?KET Negative Negative - * ?UBG 0.2 0.1 - 1.8 * ?SAMUEL Negative 0.2 - 1.3 * ?BLD Negative Negative - * Procedure Codes:?80011 URINE -NO MICRO * Preventive Medicine:? ??Counseling:?Care goal follow-up plan:?Counseling for abnormal BMI given?Yes ?Below Normal BMI Follow-up?Dietary education for weight gain, Dietary management education, guidance, and counseling, Feeding regime, Lifestyle education regarding diet, Nutrition / feeding management, Prescribed diet education, Special diet education, Intervention, Order not done: Medical or Other reason not done * Follow Up:?4 Months (Reason: OV) * Images: * Sign off status: Completed true * Provider:?Damion Vega MD Date:?04/30 Generated for Parki gabi/Niravg/eTransmitting on:?11/01/2024 07:07 AM EDT History and Physical Notes * [...] Fall Risk Assessment:: No falls in the COVID-19 Screening Questions Have you had any [...]
--- OUTSIDE RECORDS SUMMARY | 2024-11-01 07:07 | XMS_ITS ---
Author Organization Damion Vega III, MD Address [address] [facility] [address] [address] Care Team Providers Care Fire Alarm Technician Name Role Phone Damion Vega Primary Care [...] Active Terbinafine HCl 1 % 1 application Antique Clocks Repairer ally Once a day 11/23/2023 Active Social [...] Date Provider Diagnosis Damion Vega III, MD [address] [place] [address] [address], [place] [address] 01/29/2024 Damion Vega Fungal dermatitis B3 6.9 [...] 11/23/2023 Terbinafine HCl 1 % 1 application Antique Clocks Repairer ally Once a day 11/23/2023 Pending Test Test Name Order Date PROFILE, FASTING (COMPREHENSIVE METABOLI C) 01/29/2024 PSA, TOTAL 01/29/2024 CBC WITH AUTO DIFF 01/29/2024 Lipid Panel 01/29/2024 Vitamin D 25-OH Total 01/29/2024 Next Appt Details Follow Up: As Scheduled, Marlin son: OV, Annual Exam Provider Name:Damion Vega, 01/26/2025 02:30:00 PM, [address] [place] [address] [address], [place], [address], Provider Name:Damion Flanneryrne, 05/29/2025 01:45:00 PM, [address] [place] [address] [address], [place], [address], Progress Notes * Leobardo DEOB:[birth year] (68 yo M)Acc No.[id number]:01/29/2024 Progress Notes Patient:?Tyler De Provider:?Damion Vega MD :1955???Age:68 Y???Sex:Male Misha e:01/29/2024 Address:[address] [place], [place] [phone] Subjective: * Chief Complaints: * ???Fungal dermatitis, Left f ootHypertensionHyperlipidemiaGoutBenign prostatic hypertrophyPityriasis * HPI: ???COVID-19 Screening:? He returns for follow-up of a fungal [...] It was approximately 2 cm in length. ?Questions?Have you experienced fever, chills, cough, sore throat, shortness of breath, difficulty breathing, muscle aches, loss of taste or smell??No ?Have you been exposed to the virus within the last 10 days??No ?Have you travelled internationally in the last 10 days??No ?Have you been exposed to COVID-19 in the past??No * ROS:?General/Constitutional:?pain?only normal aches and pains.?Chills?denies.?Fatigue?admits.?Fever?denies.?ENT:?Decreased hearing?denies.?Respiratory:?Cough?denies.?Cardiovascular:?Chest pain with exertion?denies.?Dyspnea on exertion?denies.?Shortness of breath?denies.?Gastrointestinal:?Constipation?occasional.?Decreased appetite?denies.?Diarrhea?denies.?Heartburn?denies.?Nausea?denies.?Rectal bleeding?denies.?Vomiting?denies.?Hematology:?bruising?denies.?petechiae?denies.?Swollen glands?none have been noted.?Genitourinary:?Frequent urination?once a night.?Musculoskeletal:?Muscle aches?denies.?Painful joints?denies.?Sciatica?denies.?Weakness?denies.?Skin:?Itching?denies.?Rash?Fungal dermatitis has resolved.? Pityriasis is minimal.?Skin lesion(s)?denies.?Neurologic:?Difficulty speaking?denies.?Dizziness?denies.?Headache?denies.?Low back pain?denies.?Psychiatric:?Depressed mood?denies.? * Medical History:? * Surgical History:?injury to a finger on the left hand requiring surgery 1999 * Hospitalization/Major Diagno stic Procedure:?Denies Past Hospitalization * Family History:?Father: dece ased 97 yrs, Alcoholism, cigarette smoker.?Mother: , cancer, diagnosed with Cancer.?1 brother(s) , 6 sister(s) . 1 son(s) - healthy. .? His brother at 68 of some type of cancer in [place]. His sisters are alive and well. His son and grandchildren are alive and well. He is not aware of any hereditary malignancies in his family. * Social History:?Tobacco Use:?Tobacco Use/Smoking?Patient is a?nonsmoker ?Additional Findings: Tobacco Non-User?Aggressive non-smoker ???He works in an [employer] at [employer]. He lives and [place], [place]. He is not but has a relationship with Sherie. They have a son who lives in [place] and 2 grandchildren, all of whom are healthy. He refuses to have a colonoscopy. * Medications:?TakingVitamin D 3 25 MCG (1000 [...] All ergyno[Allergies Verified] Objective: * Vitals:?Ht: 67, Wt:125, BMI: 19.58, BP:107/65, HR:72, Temp:97.7, Wt-k.7. * Examination: ???General Examination: ?GENERAL APPEARANCE:?pleasant, well nourished, well developed, in no acute distress, calm and relaxed , underweight , man.?HEAD:?atraumatic, normocephalic.?EYES:?eomi, perrla, anicteric, conjugate.?EARS:?normal.?NOSE:?septum intact.?ORAL CAVITY:?normal, unremarkable.?NECK/THYROID:?no jugular venous distention, no carotid bruit, thyroid normal.?LYMPH NODES:?no enlarged lymph nodes,spleen normal.?SKIN:?no suspicious lesions, anicteric, Rash on his foot has resolved, faint traces of pityriasis present on the abdominal wall.?HEART:?no clicks, gallops, murmurs, or rubs, regular rhythm, S1, S2 normal, no s3, or vascular bruits.?LUNGS:?clear to auscultation .?BREASTS:??no masses palpable bilaterally.?ABDOMEN:?bowel sounds normal, no ascites, no organomegaly, no mass.?RECTAL EXAM:?not examined.?MUSCULOSKELETAL:?extremities unremarkable, no clubbing, cyanosis or edema.?PERIPHERAL PULSES:?normal.?NEUROLOGIC:?alert and oriented, cranial nerves 2-12 grossly intact, deep tendon reflexes 2+ symmetrical, motor strength normal upper and lower extremities, sensory exam intact.?PSYCH:?alert, oriented.? Assessment: * Assessment: 1.?Fungal dermatitis - B36.9 (Primary), This is completely resolved with terbinafine.?2.?Mixed hyperlipidemia - E78.2, A fasting lipid profile has been ordered prior to his next visit. 3.?BPH (benign prostatic hyperplasia) - N40.0, He says he rises from sleep once a night to urinate at most. We discussed lifestyle modification as a way to reduce nocturia.?4.?Vitamin D deficiency - E55.9, He was continued on supplementation.? Plan: * Treatment: 2.?Mixed hyperlipidemia?LAB: PROFILE, FASTING (COMPREHENSIVE METABOLIC) ?LAB: PSA, TOTAL ?LAB: CBC WITH AUTO DIFF ?LAB: Lipid Panel ?LAB: Vitamin D 25-OH Total 3.?BPH (benign prostatic hyp erplasia)?LAB: PROFILE, FASTING (COMPREHENSIVE METABOLIC) ?LAB: PSA, TOTAL ?LAB: CBC WITH AUTO DIFF ?LAB: Lipid Panel ?LAB: Vitamin D 25-OH Total 4.?Vitamin D deficiency?LAB: PROFILE, FASTING (COMPREHENSIVE METABOLIC) ?LAB: PSA, TOTAL ?LAB: CBC WITH AUTO DIFF ?LAB: Lipid Panel ?LAB: Vitamin D 25-OH Total 5.?Others? Continue Vitamin D3 Tablet, 25 MCG (1000 UT), TAKE 1 TABLET BY MOUTH EVERY DAY FOR 30 DAYS;?Continue Lisinopril-hydroCHLOROthiazide Tablet, 20-25 MG, TAKE 1 TABLET BY MOUTH EVERY DAY;?Continue Terbinafine HCl Cream, 1 %, 1 application, Externally, Once a day;?Continue Lisinopril-hydroCHLOROthiazide Tablet, 20-25 MG, 1 tablet, Orally, Once a day;?Continue Vitamin D Tablet, 25 MCG (1000 UT), 1 tablet, Orally, Once a day;?Continue Triamcinolone Acetonide Cream, 0.5 %, APPLY EXTERNALLY 3 TIMES A DAY FOR 7 DAYS.?? * Procedure Codes:? * Preventive Medicine:? ??Counseling:?Care goal follow-up plan:?Counseling for abnormal BMI given?Yes ?Below Normal BMI Follow-up?Dietary education for weight gain, Dietary management education, guidance, and counseling, Feeding regime, Lifestyle education regarding diet, Nutrition / feeding management, Prescribed diet education, Special diet education, Intervention, Order not done: Medical or Other reason not done * Follow Up:?As Scheduled (Marlin son: OV, Annual Exam) * Images: * Sign off status: Completed true * Provider:?Damion Vega MD Date:?08/2023 Generated for Printi ng/Arlen/eTransmitting on:?11/01/2024 07:07 AM EDT History and Physical Notes * HPI (History of Present Illness) Category Sub-Category Detail Notes COVID-19 Screening Questions Have you had any new onset fever, chills, cough, congestion, sore throat, shortness of breath, muscle aches?: No Have you been exposed to the virus withi n the last 10 days?: No Have you travelled internationally in [facility] last 10 days?: No Have you been [...]
--- OUTSIDE RECORDS SUMMARY | 2024-11-01 07:07 | XMS_ITS | Patient Health Record ---
Author Organization Damion Vega III, MD Address [address] [facility] [address] [place] [address] Care Team Providers Care Hand Or Machine Paster Name Role Phone Damion Vega Primary Care [...] 0.2 - 1.3 BLD Negative Negative - Complete Blood Count Auto Di ff Reviewed date:05/13/2024 11:48:54 AM Interpretation: Performing Lab:[facility], [address] [place] [phone] Notes/Report: White Blood Count 6.1 4.8-10.8 X10*3/uL Red Blood Count 4.22 4.60-5.80 X10*6/uL Hemoglobin 12.7 14.0-18.0 g/dl Hematocrit 38.9 42.0-52.0 % Mean Corpuscular Volume 92.2 80.0-98.0 fL Mean Corpuscular Hemoglobin 30.1 27.0-33.0 pg Mean Corpuscular HGB Conc 32.6 31.0-36.0 g/dl Red Cell Distribution Width 13.4 11.0-16.0 % Platelet Count 195 160-400 X10*3/uL Mean Platelet Volume 10.8 9.4-12.4 fL Neutrophils Percent Auto 58.4 45-73 % Imm Gran Pct Auto 0.3 0.0-0.4 % Lymphocytes Percent Auto 27.9 20-40 % Monocytes Percent Auto 9.6 2-11 % Eosinophils Percent Auto 2.8 0-4 % Basophils Percent Auto 1.0 0-2 % NRBC Pct Auto 0.0 0.0-0.2 /100WBC Neutrophils Absolute Auto 3.6 2.0-8.3 x10*3/u L Imm Gran Abs Auto 0.02 0.00-0.03 X10*3/uL Lymphocytes Absolute Auto 1.7 1.2-4.9 X10*3/u L Monocytes Absolute Auto 0.6 0.1-1.2 X10*3/uL Eosinophils Absolute Auto 0.2 0.0-0.4 X10*3/u L Basophils Absolute Auto 0.1 0.0-0.2 X10*3/uL NRBC Abs Auto 0.000 0.0-0.012 X10*3/uL Comprehensive [place]. Panel Fa st Reviewed date:05/13/2024 11:48:54 AM Interpretation: Performing Lab:[facility], [address] [place] [phone] Notes/Report: Sodium 140 135-145 mmol/L Potassium 5.0 3.3-5.1 mmol/L Chloride 104 96-108 mmol/L Carbon Dioxide 31 22-29 mmol/L Anion Gap 10 12-20 Blood Urea Nitrogen 32 9-16 mg/dL Creatinine 1.37 0.5-1.4 mg/dL Estimated Glomerular Filt Rate 52 NOTE: For -Dominican individuals, multiply the result by 1.210. Chronic Kidney Disease: Estimated GFR < 60 mL/min/1.73m2 Severe Kidney Disease: Estimated GFR < 15 mL/min/1.73m2 Glucose Fasting 97 60-99 mg/dL Calcium 10.5 8.4-10.2 mg/dL Bilirubin Total 0.4 0.0-1.0 mg/dL Aspartate Amino Transferase 27 5-37 U/L Alanine Aminotransferase 30 0-40 U/L Total Protein 7.5 6.5-8.0 g/dL Albumin Level 4.2 3.5-5.0 g/dL Alkaline Phosphatase 57 39-117 U/L Lipid Panel Reviewed date:05/13/2024 11:48:54 AM Interpretation: Performing Lab:[facility], [address] [place] [phone] Notes/Report: Triglycerides 88 <150 mg/dL Desirable Triglyceride: less than 150 mg/dL Borderline High Triglyceride 150-199 mg/dL High Triglyceride: 200-499 mg/dL Very High Triglyceride: greater than or equal to 5OO mg/dL Cholesterol 221 <200 mg/dL Desirable Cholesterol: less than 200 mg/dL Borderline High Cholesterol: 200-239 mg/dL High Cholesterol: greater than 239 mg/dL LDL Cholesterol Calculated 142 <100 mg/dL Desirable LDL: less than 100 mg/dL Near Optimal/Above Optimal LDL: 110-129 mg/dL Borderline High LDL: 130-159 mg/dL High LDL: 160-189 mg/dL Very High LDL: greater than or equal to 190 mg/dL HDL Cholesterol 62 >40 mg/dL Desirable HDL: greater than 40 mg/dL Note: This HDL assay may give artificially low results in patients with liver disease. Prostate Specific Antigen Reviewed date:05/13/2024 11:48:54 AM Interpretation: Performing Lab:[facility], [address] [place] [phone] Notes/Report: Prostate Specific Antigen 0.35 <0.05-4.0 ng/mL PSA methodology: Perry Alinity i Chemiluminescent Microparticle Immunoassay (CMIA) Vitamin D 25-OH Total Reviewed date:05/13/2024 11:48:54 AM Interpretation: Performing Lab:[address] [address] Notes/Report: Vitamin D 25-OH Total 44.9 >30 ng/mL Health Based Reference Values* < 20 ng/mL Deficient 20-30 ng/mL Insufficient > 30 ng/mL Sufficient *Donna THOMPSON. N Engl J Med. 2007;357:266-280 Care must be taken in interpreting Vitamin D results from different laboratories and methodologies. Published data demonstrated that results from patients undergoing hemodialysis may show a negative bias when tested with various automated 25-OH vitamin D assays when compared to LC-MS/MS. When testing samples from patients whose predominant form of Vitamin D is Vitamin D2, such as patients receiving Vitamin D2 supplementation, results that are subtherapeutic should be confirmed with another method such as LC-MS/MS. Reason For Referral No Information Medications Medication SIG (Take, Route, Frequency, Duration) Notes Start Date End Date Status Atorvastatin Calcium 10 MG TAKE 1 TABLET BY MOUTH EVERY DAY Active Triamcinolone Acetonide 0.5 % APPLY EXTERNALLY 3 TIMES A DAY FOR 7 DAYS Active Triamcinolone Acetonide 0.1 % 1 application Externally three times a day for 30 days 02/16/2020 Active Lisinopril-hydroCHLOROthiaz bronwyn 20-25 MG 1 tablet Orally Once a day 11/23/2023 Active Vitamin D 25 MCG (1000 UT) 1 tablet Oral ly Once a day 11/23/2023 Active Aleve 220 MG 1 tablet with food o r milk as needed Orally every 12 hrs Active predniSONE 20 MG TAKE 1 TABLET BY SALAZAR TH EVERY DAY FOR 7 DAYS Active Vitamin D3 25 MCG (1000 UT) TAKE 1 TABLE T BY MOUTH EVERY DAY FOR 30 DAYS Active Terbinafine HCl 1 % 1 application Product Safety And Standards Engineer ally Once a day 11/23/2023 Active Immunizations Vaccine Route Administration Date Status Comme nts Influenza, quad Unknown 05/11/2022 Administered Td (adult) Unknown 11/05/2013 Administered Influenza, quad Unknown 05/13/2020 Administered COVID PFIZER Unknown 12/17/2020 Administered COVID PFIZER Unknown 08/03/2021 Administered COVID PFIZER Unknown 11/26/2020 Administered Influenza, quad Unknown 06/08/2021 Administered Influenza, quad Unknown 05/30/2023 Administered pt rece ived vaccine at [facility] pharmacy Fluzone High-Dose (HD-IIV3) Unknown 06/07/2024 Administered Social History Tobacco Use: Social History Observation [...] ast year? No Points 0 Interpretation Negative Problems Problem Type SNOMED Code ICD Code Onset Dates Problem Status W/U Status Risk Notes Problem Gout (87531541) Gout (274.9) Active confirmed The inflammation in the towel and response to prednisone her typical of gout. It has resolved for the time being. Problem 181807581 Mixed hyperlipidemia (E78.2) Active confirmed A fasting lipid profile has been ordered prior to his next visit. 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 He has no symptoms today. The condition is very mild.I refilled his triamcinolone Problem Gout (16736789) Gout, unspecified (M10.9) Active confirmed No episodes of gout have taken place. A uric acid level will be checked periodically. Problem Benign prostatic hyperplasia (669111317) BPH (benign prostatic hyperplasia) (N40.0) Active confirmed He says he rises from sleep once a night to urinate at most. We discussed lifestyle modification as a way to reduce nocturia. Problem 59463899 Essential hypertension (I10) Active confirmed His blood pressure today is controlled, and no change in his regimen is needed. Problem Right knee pain (921898070892 105) Right knee pain (M25.561) Active confirmed He has occasional right knee pain, but it has improved in the last few months. He was instructed to notify me if it worsens. He will remain active. Problem 09560301 Vitamin D deficiency (E55.9) Active confirmed He was continued on supplementation . Vital Signs Heart Rate 74 /min 09/26/2024 Temperature 97.3 degrees Fahrenheit 09/26/2024 Blood pressure diastolic 77, 112 mm Hg 09/26/2024 Height 67 in 09/26/2024 Blood pressure systolic 112 mm Hg 09/26/2024 Weight 135, 135.0 lbs 09/26/2024 BMI 21.14 kg/m2 09/26/2024 Encounters Encounter Location Date Provider Diagnosis Damion Vega III, MD [address] [place] [address] [place] [address] 11/23/2023 Damion Vega Fungal dermatitis B3 6.9 ; Mixed hyperlipidemia E78.2 ; Essential hypertension I10 ; Pityriasis alba L30.5 and Gout, unspecified M10.9 Damion Vega III, MD [address] [place] [address] [place] [address] 01/29/2024 Damion Vega Fungal dermatitis B3 6.9 ; Mixed hyperlipidemia E78.2 ; BPH (benign prostatic hyperplasia) N40.0 and Vitamin D deficiency E55.9 Damion Vega III, MD [address] [place] [address] [place] [address] 05/27/2024 Damion Vega Essential hypertensi on I10 ; Mixed hyperlipidemia E78.2 ; Pityriasis alba L30.5 ; Gout, unspecified M10.9 and BPH (benign prostatic hyperplasia) N40.0 Damion Vega III, MD [address] [place] [address] [address] [place] [address] 09/26/2024 Damion Vega Essential hypertensi on I10 ; Mixed hyperlipidemia E78.2 ; Pityriasis alba L30.5 ; Right knee pain M25.561 and Gout, unspecified M10.9 Assessments Encounter Date Diagnosis (ICD Code) Assessment Notes Treat ment Notes Treatment Clinical Notes 11/23/2023 Mixed hyperlipidemia (ICD-10 - E78.2) His lipids are stable and slightly out of target range. His weight is in the normal range. We discussed diet and nutrition at length today. 11/23/2023 Fungal dermatitis (ICD-10 - B36.9) This is a new area on the foot whichh is clearly not pityriasis. A trial of terbinafine was given him. 01/29/2024 Mixed hyperlipidemia (ICD-10 - E78.2) A fasting lipid profile has been ordered prior to his next visit. 01/29/2024 Fungal dermatitis (ICD-10 - B36.9) This is completely resolved with terbinafine. 05/27/2024 Mixed hyperlipidemia (ICD-10 - E78.2) A fasting lipid profile has been ordered prior to his next visit. 05/27/2024 Essential hypertension (ICD-10 - I10) His blood pressure today is 34/75, and no change in his regimen is needed. 09/26/2024 Mixed hyperlipidemia (ICD-10 - E78.2) A fasting lipid profile has been ordered prior to his next visit. 09/26/2024 Essential hypertension (ICD-10 - I10) His blood pressure today is controlled, and no change in his regimen is needed. 11/23/2023 Essential hypertension (ICD-10 - I10) His blood pressure today is 120/70, and no change in his regimen is needed. 01/29/2024 BPH (benign prostati c hyperplasia) (ICD-10 - N40.0) He says he rises from sleep once a night to urinate at most. We discussed lifestyle modification as a way to reduce nocturia. 05/27/2024 Pityriasis alba (ICD-10 - L30.5) He will be treated as needed. He has no symptoms today. The condition is very mild.I refilled his triamcinolone 09/26/2024 Pityriasis alba (ICD-10 - L30.5) He will be treated as needed. He has no symptoms today. The condition is very mild.I refilled his triamcinolone 11/23/2023 Pityriasis alba (ICD-10 - L30.5) He will be treated as needed. He has no symptoms today. The condition is very mild. 01/29/2024 Vitamin D deficiency (ICD-10 - E55.9) He was continued on supplementation. 05/27/2024 Gout, unspecified (ICD-10 - M10.9) No episodes of gout have taken place. A uric acid level will be checked periodically. 09/26/2024 Right knee pain (ICD-10 - M25.561) He has occasional right knee pain, but it has improved in the last few months. He was instructed to notify me if it worsens. He will remain active. 11/23/2023 Gout, unspecified (ICD-10 - M10.9) No episodes of gout have taken place. A uric acid level will be checked periodically. 05/27/2024 BPH (benign prostati c hyperplasia) (ICD-10 - N40.0) He says he rises from sleep once a night to urinate at most. We discussed lifestyle modification as a way to reduce nocturia. 09/26/2024 Gout, unspecified (ICD-10 - M10.9) No episodes of gout have taken place. A uric acid level will be checked periodically. Plan Of Treatment Pending Test Test Name Order Date PROFILE, FASTING (COMPREHENSIVE METABOLI C) 03/24/2020 PROFILE, FASTING (COMPREHENSIVE METABOLI C) 05/22/2018 PROFILE, FASTING (COMPREHENSIVE METABOLI C) 12/01/2020 PROFILE, FASTING (COMPREHENSIVE METABOLI C) 10/04/2021 PROFILE, FASTING (COMPREHENSIVE METABOLI C) 09/25/2022 PROFILE, FASTING (COMPREHENSIVE METABOLI C) 05/23/2022 PROFILE, FASTING (COMPREHENSIVE METABOLI C) 02/11/2020 PROFILE, FASTING (COMPREHENSIVE METABOLI C) 09/26/2024 PROFILE, FASTING (COMPREHENSIVE METABOLI C) 01/29/2024 PROFILE, FASTING (COMPREHENSIVE METABOLI C) 09/03/2020 PROFILE, FASTING (COMPREHENSIVE METABOLI C) 06/06/2021 PROFILE, FASTING (COMPREHENSIVE METABOLI C) 04/05/2021 PROFILE, FASTING (COMPREHENSIVE METABOLI C) 05/25/2023 PROFILE, FASTING (COMPREHENSIVE METABOLI C) 10/31/2019 PROFILE, FASTING (COMPREHENSIVE METABOLI C) 12/22/2022 PROFILE, FASTING (COMPREHENSIVE METABOLI C) 07/01/2019 PROFILE, FASTING (COMPREHENSIVE METABOLI C) 07/05/2020 PROFILE, FASTING (COMPREHENSIVE METABOLI C) 11/20/2018 CALCIUM 07/01/2019 LIPID PANEL 10/31/2019 LIPID PANEL 12/22/2022 LIPID PANEL 07/05/2020 LIPID PANEL 11/20/2018 LIPID PANEL 07/01/2019 LIPID PANEL 03/24/2020 LIPID PANEL 05/22/2018 LIPID PANEL 12/01/2020 LIPID PANEL 09/25/2022 LIPID PANEL 02/11/2020 LIPID PANEL 09/03/2020 LDH 02/11/2020 PSA, TOTAL 05/25/2023 PSA, TOTAL 12/22/2022 PSA, TOTAL 07/05/2020 PSA, TOTAL 11/20/2018 PSA, TOTAL 03/24/2020 PSA, TOTAL 05/23/2022 PSA, TOTAL 05/22/2018 PSA, TOTAL 09/26/2024 PSA, TOTAL 01/29/2024 CBC w DIFF 09/03/2020 CBC w DIFF 10/31/2019 CBC w DIFF 12/22/2022 CBC w DIFF 07/01/2019 CBC w DIFF 07/05/2020 CBC w DIFF 10/04/2021 CBC w DIFF 11/20/2018 CBC w DIFF 12/01/2020 CBC w DIFF 09/25/2022 CBC w DIFF 03/24/2020 CBC w DIFF 05/23/2022 CBC w DIFF 05/22/2018 CBC w DIFF 06/06/2021 CBC w DIFF 02/11/2020 CBC w DIFF 04/05/2021 PROTHROMBIN TIME (PT, INR) 01/04/2022 PARTIAL THROMBOPLASTIN TIME (PTT) 2021 VITAMIN D 25-OH TOTAL 12/22/2022 VITAMIN D 25-OH TOTAL 11/20/2018 PARATHYROID HORMONE INTACT 07/01/2019 CBC WITH AUTO DIFF 05/25/2023 CBC WITH AUTO DIFF 09/26/2024 CBC WITH AUTO DIFF 01/29/2024 Fibrinogen 01/04/2022 Uric Acid 09/26/2024 Calcium 04/05/2021 Lipid Panel 06/06/2021 Lipid Panel 01/29/2024 Lipid Panel 09/26/2024 Lipid Panel 04/05/2021 Lipid Panel 05/25/2023 Lipid Panel 10/04/2021 Lipid Panel 05/23/2022 Vitamin D 25-OH Total 05/23/2022 Vitamin D 25-OH Total 01/29/2024 Parathyroid Hormone Related Pr Next Appt Details Provider Name:Damion Vega, 01/26/2025 02:30:00 PM, [address] [place] [address] [address], [place], [address], Provider Name:Damion Vega, 05/29/2025 01:45:00 PM, [address] [place] [address] [address], [place], [address], Insurance Providers Payer Name Payer Address Payer Phone Subscriber Number Group Number Insured Name Patient Relationship to Insured Coverage Start Date Coverage End Date [employer] [place] [address] [address] [place] [address] [id number] Tyler Nunes Self - patient is the insured Medical (General) History Medical History History ICD Code hypertension hyperlipidemia pityriasis alba 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 Regular blood pressure checks. Takes medicine regularly. Surgical History Surgery Date(Month/Year) injury to a finger on the left hand requ iring surgery 1999 No history Hospitalization History Reason Date(Month/Year) No history
--- OUTSIDE RECORDS SUMMARY | 2024-11-01 07:07 | XMS_ITS ---
Author Organization Damion Vega III, MD Address [address] [facility] [address] [place] [address] Care Team Providers Care Senior Data Analyst Name Role Phone Damion Vega Primary Care Provider Allergies Allergen (clinical drug ingredient) Drug/Non Drug Allergy documented on EMR Reaction Allergy Type Onset Date Status No Known Drug Allergy Unknown Drug Allergy Active REASON FOR VISIT Hypertension, pityriasis, Benign prostatic [...] Active Terbinafine HCl 1 % 1 application Heat Treater Apprentice ally Once a day 11/23/2023 Active Social [...] Date Provider Diagnosis Damion Vega III, MD [address] [place] [address] [place] [id number] 09/26/2024 Damion Vega Essential hypertensi on I10 [...] DAYS Terbinafine HCl 1 % 1 application Heat Treater Apprentice ally Once a day 11/23/2023 Pending Test Test Name Order Date PROFILE, FASTING (COMPREHENSIVE METABOLI C) 09/26/2024 PSA, TOTAL 09/26/2024 CBC WITH AUTO DIFF 09/26/2024 Uric Acid 09/26/2024 Lipid Panel 09/26/2024 Next Appt Details Follow Up: 4 Months, In four months, Reason: OV, Routine checkup Provider Name:Damion Vega, 01/26/2025 02:30:00 PM, [address] [place] [address] ALBER DORANTES, [place]AK[place], [id number], Provider Name:Damion Vega, 05/29/2025 01:45:00 PM, [address] [place] [address] ALBER DORANTES, [place]AK[place]IN[place], [id number], Progress Notes * Leobardo DEOB:[birth year] (68 yo M)Acc No.[id number]:09/26/2024 Progress Notes Patient:Tyler CARMONA Provider:?Damion Vega MD :1955???Age:68 Y???Sex:Male Misha e:09/26/2024 Address:[address] [place] [address] AM[place] [phone] Subjective: * Chief Complaints: * ???HypertensionPityriasisBen ign prostatic hypertrophyGout * HPI: ???COVID-19 Screening:?Questions?Have you had any new onset fever, chills, cough, congestion, sore throat, shortness of breath, muscle aches??No ???:? The patient, a 68-year-old male, reported no [...] which he has been taking regularly. * ROS:?General/Constitutional:?pain?only normal aches and pains.?Chills?denies.?Fatigue?admits.?Fever?denies.?ENT:?Decreased hearing?denies.?Respiratory:?Cough?denies.?Cardiovascular:?Chest pain with exertion?denies.?Dyspnea on exertion?denies.?Shortness of breath?denies.?Gastrointestinal:?Constipation?occasional.?Decreased appetite?denies.?Diarrhea?denies.?Heartburn?denies.?Nausea?denies.?Rectal bleeding?denies.?Vomiting?denies.?Hematology:?bruising?denies.?petechiae?denies.?Swollen glands?none have been noted.?Genitourinary:?Frequent urination?once a night.?Musculoskeletal:?Muscle aches?denies.?Painful joints?denies.?Sciatica?denies.?Weakness?denies.?Skin:?Itching?denies.?Rash?improved.?Skin lesion(s)?denies.?Neurologic:?Difficulty speaking?denies.?Dizziness?denies.?Headache?denies.?Low back pain?denies.?Psychiatric:?Depressed mood?denies.? * Medical History:? * Surgical History:?injury to a finger on the left hand requiring surgery 1999No history * Hospitalization/Major Diagno stic Procedure:?No history * Family History:?Father: dece ased 97 yrs, Alcoholism, cigarette smoker.?Mother: , cancer, diagnosed with Cancer.?1 brother(s) , 6 sister(s) . 1 son(s) - healthy. .? His brother at 68 of some type of cancer in [place]. His sisters are alive and well. His son and grandchildren are alive and well. He is not aware of any hereditary malignancies in his family. * Social History:?Tobacco Use:?Tobacco Control (Standard)?Tobacco use:?Nonsmoker ?Additional Findings: Tobacco non-user?Aggressive nonsmoker ???Drugs/Alcohol:?Drugs?Have you used drugs other than those for medical reasons in the past 12 months??No ???Miscellaneous:?Domestic violence: no. 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 He lives and [place], [place]. He is not but has a relationship with Sherie. They have a son who lives in [place] and 2 grandchildren, all of whom are healthy. He refuses to have a colonoscopy. Work: Works for [employer] Smoking: Never smoked Patient has stopped drinking for almost four years. * Medications:?TakingVitamin D 3 25 MCG (1000 [...] DAYS Taking Lisinopril- hydroCHLOROthiazide 20-25 MG Tablet 1 tablet Orally Once [...] All ergyno[Allergies Verified] Objective: * Vitals:?Ht: 67, Wt: 135,135. 0, BMI:21.14, BP: 112/77,112/77, HR:74, Temp:97.3, Wt-k.23. * Examination: ???General Examination: ?GENERAL APPEARANCE:?pleasant, well nourished, well developed, in no acute distress, calm and relaxed, man.?HEAD:?atraumatic, normocephalic.?EYES:?eomi, perrla, anicteric, conjugate.?EARS:?normal.?NOSE:?septum intact.?ORAL CAVITY:?normal, unremarkable.?NECK/THYROID:?no jugular venous distention, no carotid bruit, thyroid normal.?LYMPH NODES:?no enlarged lymph nodes,spleen normal.?SKIN:?no suspicious lesions, anicteric, Mild pityriasis.?HEART:?no clicks, gallops, murmurs, or rubs, regular rhythm, [...] sensory exam intact.?PSYCH:?alert, oriented.? 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 He has no symptoms today. The condition is very mild.I refilled his triamcinolone???4.?Right knee pain - M25.561???Notes :He has occasional right knee pain, but it has improved in the last few months. He was instructed to notify me if it worsens. He will remain active.???5.?Gout, unspecified - M10.9???Notes :No episodes of gout have taken place. A uric acid level will be checked periodically.??? Plan: * Treatment: 2.?Mixed hyperlipidemia?LAB: PROFILE, FASTING (COMPREHENSIVE METABOLIC) ?LAB: PSA, TOTAL ?LAB: CBC WITH AUTO DIFF ?LAB: Uric Acid ?LAB: Lipid Panel 3.?Gout, unspecified?LAB: PROFILE, FASTING (COMPREHENSIVE METABOLIC) ?LAB: PSA, TOTAL ?LAB: CBC WITH AUTO DIFF ?LAB: Uric Acid ?LAB: Lipid Panel 4.?Others? Continue predniSONE Tablet, 20 MG, TAKE 1 [...] FOR 7 DAYS.?? * Procedure Codes:? * Follow Up:?4 Months, In four months (Reason: OV, Routine checkup) * Images: * Sign off status: Completed true * Provider:?Damion Vega MD Date:?08/31 Generated for Jaz ashley/Arlen/Kayeitting on:?11/01/2024 07:07 AM EDT History and Physical [...]
[2024-11-01 07:29] LABS: MANUAL DIFF FLAG NO
[2024-11-01 08:40] LABS: Basophils Absolute Auto 0.1 X10*3/uL (0.0-0.2); Eosinophils Absolute Auto 0.2 X10*3/uL (0.0-0.4); Eosinophils Percent Auto 3.6 % (0-4); Hematocrit 40.4 % (42.0-52.0); Hemoglobin 13.5 g/dl (14.0-18.0); Imm Gran Abs Auto 0.03 X10*3/uL (0.00-0.03); Imm Gran Pct Auto 0.5 % (0.0-0.4); Lymphocytes Absolute Auto 1.7 X10*3/uL (1.2-4.9); Lymphocytes Percent Auto 28.6 % (20-40); Mean Corpuscular HGB Conc 33.4 g/dl (31.0-36.0); Mean Corpuscular Hemoglobin 30.3 pg (27.0-33.0); Mean Corpuscular Volume 90.8 fL (80.0-98.0); Mean Platelet Volume 11.2 fL (9.4-12.4); Monocytes Absolute Auto 0.6 X10*3/uL (0.1-1.2); Monocytes Percent Auto 9.6 % (2-11); Neutrophils Absolute Auto 3.3 x10*3/uL (2.0-8.3); Neutrophils Percent Auto 56.7 % (45-73); Platelet Count 196 X10*3/uL (160-400); Red Blood Count 4.45 X10*6/uL (4.60-5.80); Red Cell Distribution Width 13.4 % (11.0-16.0); White Blood Count 5.8 X10*3/uL (4.8-10.8)
[2024-11-01 09:33] LABS: Alanine Aminotransferase 31 U/L (0-40); Albumin Level 4.4 g/dL (3.5-5.0); Alkaline Phosphatase 58 U/L (39-117); Anion Gap 14 (12-20); Aspartate Amino Transferase 35 U/L (5-37); Bilirubin Total 0.6 mg/dL (0.0-1.0); Blood Urea Nitrogen 33 mg/dL (9-16); Calcium 10.3 mg/dL (8.4-10.2); Carbon Dioxide 27 mmol/L (22-29); Chloride 102 mmol/L (96-108); Cholesterol 233 mg/dL (<200); Estimated Glomerular Filt Rate 55; Glucose Fasting 93 mg/dL (60-99); HDL Cholesterol 63 mg/dL (>40); LDL Cholesterol Calculated 150 mg/dL (<100); Potassium 4.6 mmol/L (3.3-5.1); Sodium 138 mmol/L (135-145); Total Protein 7.9 g/dL (6.5-8.0); Triglycerides 100 mg/dL (<150); Uric Acid 7.5 mg/dL (3.4-7.0)
[2024-11-01 10:08] LABS: Prostate Specific Antigen 0.46 ng/mL (<0.05-4.0)
== END 2024-11-01 07:05 | disposition home or self-care (01) ==
LOC: HO.LAB 07:04
PROVIDERS: PCP Internal Medicine Medical Oncology; Visit Provider Internal Medicine Medical Oncology
DX: I10 Essential (primary) hypertension (principal); E78.2 Mixed hyperlipidemia; M10.9 Gout, unspecified; E55.9 Vitamin D deficiency, unspecified; Z12.5 Encounter for screening for malignant neoplasm of prostate
CPT/HCPCS: 36415; 80053; 80061; 84153; 84550; 85025

== ENCOUNTER 2025-05-02 07:06 | Outpatient (REF) | payer OTHER, SELFPAY ==
--- OUTSIDE RECORDS SUMMARY | 2023-11-23 10:00 | XMS_ITS ---
Author Organization Damion Vega III, MD Address [address] [facility] [place] [address] Care Team Providers Care Pharmacy Technician Inpatient Name Role Phone Dr. Damion Vega III Primary Care Provider [phone] Allergies Allergen (clinical drug ingredient) Drug/Non Drug Allergy documented on EMR Reaction Allergy Type Onset Date Status No Known Drug Allergy Unknown Drug Allergy Active REASON FOR VISIT Rash on left foot, He rises, Right knee pain, Benign prostatic hypertrophy, Gout, Hyperlipidemia Medications Medication SIG (Take, Route, Frequency, Duration) Notes Start Date End Date Status Lisinopril-hydroCHLOROthia zide 20-25 MG TAKE 1 TABLET BY MOUTH EVERY DAY Active Vitamin D 25 MCG (1000 UT) 1 tablet Oral ly Once a day for 90 days 11/23/2023 11/17/2024 Active Vitamin D3 25 MCG (1000 UT) TAKE 1 TABLET BY MOUTH EVERY DAY FOR 30 DAYS Active Lisinopril-hydroCHLOROthia zide 20-25 MG 1 tablet Orally Once a day for 90 days 11/23/2023 Active Terbinafine HCl 1 % 1 application Care Administrative Tech ally Once a day for 30 days 11/23/2023 06/19/2024 Active Triamcinolone Acetonide 0.5 % 1 application Externally three times a day 11/17/2022 Active Atorvastatin Calcium 10 MG TAKE 1 TABLET BY MOUTH EVERY DAY Active Aleve 220 MG 1 tablet with food o r milk as needed Orally every 12 hrs Active Triamcinolone Acetonide 0.1 % 1 application Externally three times a day 02/16/2020 Active Social History Tobacco Use: Social History Observation Description Date Details (start date - stop date) Never Smoker NA - NA Sex Assigned At : Social History Observation Description Sex Assigned At Male Tobacco Use/Smoking Question Answer Notes Patient is a nonsmoker Additional Findings: Tobacco Non-User Aggressive non-smoker Vital Signs Temperature 98.1 degrees Fahrenheit 11/23/19 24 Blood pressure systolic 100 mm Hg 11/23/19 24 Blood pressure diastolic 65 mm Hg 024 Heart Rate 79 /min 11/23/2023 Height 67 in 11/23/2023 Weight 127 lbs 11/23/2023 BMI 19.89 kg/m2 11/23/2023 Encounters Encounter Location Date Provider Diagnosis Damion Vega III, MD [address] [place] [address] [place] [address] 11/23/2023 Damion Vega Fungal dermatitis B3 6.9 ; Mixed hyperlipidemia E78.2 ; Essential hypertension I10 ; Pityriasis alba L30.5 and Gout, unspecified M10.9 Assessments Encounter Date Diagnosis (ICD Code) Assessment Notes Treat ment Notes Treatment Clinical Notes 11/23/2023 Fungal dermatitis (ICD-10 - B36.9) This is a new area on the foot whichh is clearly not pityriasis. A trial of terbinafine was given him. 11/23/2023 Mixed hyperlipidemia (ICD-10 - E78.2) His lipids are stable and slightly out of target range. His weight is in the normal range. We discussed diet and nutrition at length today. 11/23/2023 Essential hypertension (ICD-10 - I10) His blood pressure today is 120/70, and no change in his regimen is needed. 11/23/2023 Pityriasis alba (ICD-10 - L30.5) He will be treated as needed. He has no symptoms today. The condition is very mild. 11/23/2023 Gout, unspecified (ICD-10 - M10.9) No episodes of gout have taken place. A uric acid level will be checked periodically. Plan Of Treatment Medication Medication Name Sig Start Date Stop Date Notes Lisinopril-hydroCHLOROthiazi de 20-25 MG TAKE 1 TABLET BY MOUTH EVERY DAY Vitamin D 25 MCG (1000 UT) 1 tablet Oral ly Once a day for 90 days 11/23/2023 11/17/2024 Vitamin D3 25 MCG (1000 UT) TAKE 1 TABLE T BY MOUTH EVERY DAY FOR 30 DAYS Lisinopril-hydroCHLOROthiazi de 20-25 MG 1 tablet Orally Once a day for 90 days 11/23/2023 Terbinafine HCl 1 % 1 application Care Administrative Tech ally Once a day for 30 days 11/23/2023 06/19/2024 Triamcinolone Acetonide 0.5 % 1 applicat ion Externally three times a day 11/17/2022 Atorvastatin Calcium 10 MG TAKE 1 TABLET BY MOUTH EVERY DAY Aleve 220 MG 1 tablet with food o r milk as needed Orally every 12 hrs Triamcinolone Acetonide 0.1 % 1 applicat ion Externally three times a day 02/16/2020 Next Appt Details Follow Up: 2 Months, Reason: Office visit Provider Name:Damion Vega , 05/29/2025 01:45:00 PM, [address] [place] [address], [id number], Progress Notes * Leobardo DEOB:[birth year] (68 yo M)Acc No.[id number]:11/23/2023 Progress Notes Patient: Tyler Bruner Provider: Manas Vega MD :[id number] A ge:68 Y S ex:Male Date:11/23/2023 Address:[address] [place], [place] [id number] Subjective: * Chief Complaints: * R hung on left footHe risesRight knee painBenign prostatic hypertrophyGoutHyperlipidemia * HPI: C OVID-19 Screening: For the last 4 weeks he has had a ppruritic red rash on theLeft foot. It has not responded to anything he has tried. Evaluation is seem to be an area of fungal dermatitis on the dorsum and lateral border of left foot. There was no onychomycosis. The vascular supply and neural supply were intact. He wass given a prescription for terbinaafine. Questions H ave you experienced fever, chills, cough, sore throat, shortness of breath, difficulty breathing, muscle aches, loss of taste or smell? N o H ave you been exposed to the virus within the last 10 days? N o H ave you travelled internationally in the last 10 days? N o H ave you been exposed to COVID-19 in the past? N o * ROS: G eneral/Constitutional: pain R ight knee, otherwise only normal aches and pains.?Chills d enies. F atigue a dmits. F ever d enies. E NT: Decreased hearing d enies. R espiratory: Cough d enies. C ardiovascular: Chest pain with exertion d enies. D yspnea on exertion?denies. S hortness of breath d enies. G astrointestinal: Constipation d enies. D ecreased appetite d enies.?Diarrhea d enies. H eartburn d enies. N ausea d enies. R ectal bleeding?denies. V omiting d enies. H ematology: bruising d enies. p etechiae d enies. S wollen glands n one have been noted. G enitourinary: Frequent urination o nce a night. M usculoskeletal: Muscle aches d enies. P ainful joints R ight knee.?Sciatica d enies. W eakness d enies. S kin: Itching d enies. R hung d enies. S kin lesion(s)?Pruritic rash dorsum and lateral border left foot. N eurologic: Difficulty speaking d enies. D izziness d enies.?Headache d enies. L ow back pain d enies. P sychiatric: Depressed mood d enies. * Medical History: * Surgical History: i njury to a finger on the left hand requiring surgery 1999 * Hospitalization/Major Diagno stic Procedure: D enies Past Hospitalization * Family History: F ather: 97 yrs, Alcoholism, cigarette smoker. M other: , cancer, diagnosed with Cancer. 1 brother(s) , 6 sister(s) . 1 son(s) - healthy. . His brother at 68 of some type of cancer in [place]. His sisters are alive and well. His son and grandchildren are alive and well. He is not aware of any hereditary malignancies in his family. 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 He lives and [place], [place]. He is not but has a relationship with Sherie. They have a son who lives in [place] and 2 grandchildren, all of whom are healthy. He refuses to have a colonoscopy. * Medications: T akingLisinopril-hydroCHLOROthiazide 20-25 MG Tablet TAKE 1 TABLET BY MOUTH EVERY DAY Vitamin D3 25 MCG (1000 UT) Tablet TAKE 1 TABLET BY MOUTH EVERY DAY FOR 30 DAYS Triamcinolone Acetonide 0.5 % Cream 1 application Externally three times a dayTaking Lisinopril-hydroCHLOROthiazide 20-25 MG Tablet TAKE 1 TABLET BY MOUTH EVERY DAY Taking Vitamin D3 25 MCG (1000 UT) Tablet TAKE 1 TABLET BY MOUTH EVERY DAY FOR 30 DAYS Taking Triamcinolone Acetonide 0.5 % Cream 1 application Externally three times a dayNot-Taking/PRNTriamcinolone Acetonide 0.1 % Cream 1 application Externally three times a dayAleve 220 MG Tablet 1 tablet with food or milk as needed Orally every 12 hrsAtorvastatin Calcium 10 MG Tablet TAKE 1 TABLET BY MOUTH EVERY DAY Medication List reviewed and reconciled with the patientNot-Taking/PRN Triamcinolone Acetonide 0.1 % Cream 1 application Externally three times a dayNot-Taking/PRN Aleve 220 MG Tablet 1 tablet with food or milk as needed Orally every 12 hrsNot-Taking/PRN Atorvastatin Calcium 10 MG Tablet TAKE 1 TABLET BY MOUTH EVERY DAY Medication List reviewed and reconciled with the patient * Allergies: N o Known Drug Allergyno[Allergies Verified] Objective: * Vitals: H t: 67, Wt:127, BMI:19.89, BP:100/65, HR:79, Temp:98.1, Wt-k.61. * Examination: G eneral Examination: GENERAL APPEARANCE: p leasant, well nourished, well developed, in no acute distress, calm and relaxed , overweight , man. HEAD: a traumatic, normocephalic. EYES: e reshma, perrla, anicteric, conjugate. EARS: n ormal. NOSE: s eptum intact. ORAL CAVITY: n ormal, unremarkable. NECK/THYROID: n o jugular venous distention, no carotid bruit, thyroid normal. LYMPH NODES: n o enlarged lymph nodes,spleen normal. SKIN: n o suspicious lesions, anicteric, Fungal dermatitis left foot. HEART: n o clicks, gallops, murmurs, or rubs, regular rhythm, S1, S2 normal, no s3, or vascular bruits. LUNGS: c lear to auscultation . BREASTS: no masses palpable bilaterally. ABDOMEN: b owel sounds normal, no ascites, no organomegaly, no mass. RECTAL EXAM: n ot examined. MUSCULOSKELETAL: e xtremities unremarkable, no clubbing, cyanosis or edema, Range of motion right knee within normal limits. PERIPHERAL PULSES: n ormal. NEUROLOGIC: a lert and oriented, cranial nerves 2-12 grossly intact, deep tendon reflexes 2+ symmetrical, motor strength normal upper and lower extremities, sensory exam intact. PSYCH: a lert, oriented. Assessment: * Assessment: 1. F ungal dermatitis - B36.9 (Primary), This is a new area on the foot whichh is clearly not pityriasis. A trial of terbinafine was given him. 2 . M ixed hyperlipidemia - E78.2, His lipids are stable and slightly out of target range. His weight is in the normal range. We discussed diet and nutrition at length today. 3 . E ssential hypertension - I10, His blood pressure today is 120/70, and no change in his regimen is needed. 4 . P ityriasis alba - L30.5, He will be treated as needed. He has no symptoms today. The condition is very mild. 5 . G out, unspecified - M10.9, No episodes of gout have taken place. A uric acid level will be checked periodically.? Plan: * Treatment: 2. O thers Continue Vitamin D3 Tablet, 25 MCG (1000 UT), TAKE 1 TABLET BY MOUTH EVERY DAY FOR 30 DAYS; C ontinue Triamcinolone Acetonide Cream, 0.5 %, 1 application, Externally, three times a day; C ontinue Lisinopril-hydroCHLOROthiazide Tablet, 20-25 MG, TAKE 1 TABLET BY MOUTH EVERY DAY; S tart Terbinafine HCl Cream, 1 %, 1 application, Externally, Once a day, 30 days, 60 Gram, Refills 6; S tart Lisinopril-hydroCHLOROthiazide Tablet, 20-25 MG, 1 tablet, Orally, Once a day, 90 days, 90 Tablet, Refills 3; S tart Vitamin D Tablet, 25 MCG (1000 UT), 1 tablet, Orally, Once a day, 90 days, 90 Tablet, Refills 3. * Procedure Codes: * Preventive Medicine: Counseling: C are goal follow-up plan: Counseling for abnormal BMI given Y es Below Normal BMI Follow-up D ietary education for weight gain, Dietary management education, guidance, and counseling, Feeding regime, Lifestyle education regarding diet, Nutrition / feeding management, Prescribed diet education, Special diet education, Intervention, Order not done: Medical or Other reason not done * Follow Up: 2 Months (Reason: Office visit) * Images: * Sign off status: Completed true * Provider: Manas Vega MD Date: 0 11/23/2023 Generated for Jaz ashley/Arlen/Anderw on: 1 07:09 AM EDT History and Physical Notes * HPI (History of Present Illness) Category Sub-Category Detail Notes COVID-19 Screening Questions Have you had any new onset fever, chills, cough, congestion, sore throat, shortness of breath, muscle aches?: No Have you been exposed to the virus withi n the last 10 days?: No Have you travelled internationally in last 10 days?: No Have you been exposed to COVID-19 in the past?: No Examination Category Sub-Category Detail Notes General Examination GENERAL APPEARANCE: pleasant , well nourished, well developed, in no acute distress, calm and relaxed , overweight , man HEAD: atraumatic, normocep halic EYES: eomi, perrla, anicte boyd, conjugate EARS: normal NOSE: septum intact NECK/THYROID: no jugular venous di stention, no carotid bruit, thyroid normal HEART: no clicks, gallops, murmurs, or rubs, regular rhythm, S1, S2 normal, no s3, or vascular bruits LUNGS: clear to auscultatio n ABDOMEN: bowel sounds normal, no ascites, no organomegaly, no mass NEUROLOGIC: alert and oriented, cranial nerves 2-12 grossly intact, deep tendon reflexes 2+ symmetrical, motor strength normal upper and lower extremities, sensory exam intact SKIN: no suspicious lesion s, anicteric, Fungal dermatitis left foot PERIPHERAL PULSES: normal BREASTS: no masses palpable b ilaterally MUSCULOSKELETAL: extremities unremark able, no clubbing, cyanosis or edema, Range of motion right knee within normal limits LYMPH NODES: no enlarged lymph no marli,spleen normal RECTAL EXAM: not examined PSYCH: alert, oriented ORAL CAVITY: normal, unremarkable
--- OUTSIDE RECORDS SUMMARY | 2024-01-29 10:30 | XMS_ITS ---
Author Organization Damion Vega III, MD Address [address] [facility] [address] [address] Care Team Providers Care Legend Maker Name Role Phone Dr. Damion Vega III Primary Care Provider Allergies Allergen (clinical drug ingredient) Drug/Non Drug Allergy documented on EMR Reaction Allergy Type Onset Date Status No Known Drug Allergy Unknown Drug Allergy Active REASON FOR VISIT Fungal dermatitis, Left foot, Hypertension, Hyperlipidemia, Gout, Benign prostatic hypertrophy, Pityriasis Medications Medication SIG (Take, Route, Frequency, Duration) Notes Start Date End Date Status Triamcinolone Acetonide 0.1 % 1 application Externally three times a day 02/16/2020 Active Vitamin D 25 MCG (1000 UT) 1 tablet Oral ly Once a day 11/23/2023 Active Atorvastatin Calcium 10 MG TAKE 1 TABLET BY MOUTH EVERY DAY Active Aleve 220 MG 1 tablet with food o r milk as needed Orally every 12 hrs Active Triamcinolone Acetonide 0.5 % APPLY EXTERNALLY 3 TIMES A DAY FOR 7 DAYS Active Lisinopril-hydroCHLOROthiaz bronwyn 20-25 MG TAKE 1 TABLET BY MOUTH EVERY DAY Active Vitamin D3 25 MCG (1000 UT) TAKE 1 TABLE T BY MOUTH EVERY DAY FOR 30 DAYS Active Lisinopril-hydroCHLOROthiaz bronwyn 20-25 MG 1 tablet Orally Once a day 11/23/2023 Active Terbinafine HCl 1 % 1 application Crozer ally Once a day 11/23/2023 Active Social History Tobacco Use: Social History Observation Description Date Details (start date - stop date) Never Smoker NA - NA Sex Assigned At : Social History Observation Description Sex Assigned At Male Tobacco Use/Smoking Question Answer Notes Patient is a nonsmoker Additional Findings: Tobacco Non-User Aggressive non-smoker Vital Signs Temperature 97.7 degrees Fahrenheit 01/29/20 24 Blood pressure systolic 107 mm Hg 01/29/20 24 Blood pressure diastolic 65 mm Hg 024 Heart Rate 72 /min 01/29/2024 Height 67 in 01/29/2024 Weight 125 lbs 01/29/2024 BMI 19.58 kg/m2 01/29/2024 Encounters Encounter Location Date Provider Diagnosis Damion Vega III, MD [address] [place] [address] [place] [id number] 01/29/2024 Damion Vega Fungal dermatitis B3 6.9 ; Mixed hyperlipidemia E78.2 ; BPH (benign prostatic hyperplasia) N40.0 and Vitamin D deficiency E55.9 Assessments Encounter Date Diagnosis (ICD Code) Assessment Notes Treat ment Notes Treatment Clinical Notes 01/29/2024 Fungal dermatitis (ICD-10 - B36.9) This is completely resolved with terbinafine. 01/29/2024 Mixed hyperlipidemia (ICD-10 - E78.2) A fasting lipid profile has been ordered prior to his next visit. 01/29/2024 BPH (benign prostati c hyperplasia) (ICD-10 - N40.0) He says he rises from sleep once a night to urinate at most. We discussed lifestyle modification as a way to reduce nocturia. 01/29/2024 Vitamin D deficiency (ICD-10 - E55.9) He was continued on supplementation. Plan Of Treatment Medication Medication Name Sig Start Date Stop Date Notes Triamcinolone Acetonide 0.1 % 1 applicat ion Externally three times a day 02/16/2020 Vitamin D 25 MCG (1000 UT) 1 tablet Orally Once a day 10/29 Atorvastatin Calcium 10 MG TAKE 1 TABLET BY MOUTH EVERY DAY Aleve 220 MG 1 tablet with food o r milk as needed Orally every 12 hrs Triamcinolone Acetonide 0.5 % APPLY EXTE RNALLY 3 TIMES A DAY FOR 7 DAYS Lisinopril-hydroCHLOROthiazi de 20-25 MG TAKE 1 TABLET BY MOUTH EVERY DAY Vitamin D3 25 MCG (1000 UT) TAKE 1 TABLE T BY MOUTH EVERY DAY FOR 30 DAYS Lisinopril-hydroCHLOROthiazi de 20-25 MG 1 tablet Orally Once a day 11/23/2023 Terbinafine HCl 1 % 1 application Crozer ally Once a day 11/23/2023 Pending Test Test Name Order Date PROFILE, FASTING (COMPREHENSIVE METABOLI C) 01/29/2024 PSA, TOTAL 01/29/2024 CBC WITH AUTO DIFF 01/29/2024 Lipid Panel 01/29/2024 Vitamin D 25-OH Total 01/29/2024 Next Appt Details Follow Up: As Scheduled, Marlin son: OV, Annual Exam Provider Name:Damion Courtney Silvia , 05/29/2025 01:45:00 PM, [address] [place] [address], [address], [phone], Progress Notes * Leobardo DEOB:[birth year] (68 yo M)Acc No.[id number]:01/29/2024 Progress Notes Patient: Tyler Bruner Provider: Manas Vega MD :[id number] A ge:68 Y S ex:Male Date:01/29/2024 Address:[address] [place], [place] [id number] Subjective: * Chief Complaints: * F ungal dermatitis, Left footHypertensionHyperlipidemiaGoutBenign prostatic hypertrophyPityriasis * HPI: C OVID-19 Screening: He returns for follow-up of a fungal dermatitis on his right foot. He was treated with terbinafine with complete resolution. The pityriasis is minimal at this time. The pain in his right knee has improved substantially. He has had no attacks of gout. He sustained a small skin tear on his left elbow while sitting in a chair in my office today. This was dressed and bandaged and he was given instructions on its care. It was approximately 2 cm in length. Questions H ave you experienced fever, chills, [...] N o * ROS: G eneral/Constitutional: pain o nly normal aches and pains. C hills d enies.?Fatigue a dmits. F ever d enies. E NT: Decreased hearing d enies. R espiratory: Cough d enies. C ardiovascular: Chest pain with exertion d enies. D yspnea on exertion?denies. S hortness of breath d enies. G astrointestinal: Constipation o ccasional. D ecreased appetite d enies. D iarrhea d enies. H eartburn d enies. N ausea d enies. R ectal bleeding d enies. V omiting d enies. H ematology: bruising d enies. p etechiae d enies. S wollen glands n one have been noted. G enitourinary: Frequent urination o nce a night. M usculoskeletal: Muscle aches d enies. P ainful joints d enies. S ciatica d enies. W eakness d enies. S kin: Itching d enies. R hung F ungal dermatitis has resolved. Pityriasis is minimal. S kin lesion(s) d enies. N eurologic: Difficulty speaking d enies. D [...] of some type of cancer in [place]. His sisters are alive and well. His son and grandchildren are alive and well. He is not aware of any hereditary malignancies in his family. 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 He lives and [place], [place]. He is not but has a relationship with [facility] [facility]. They have a son who lives in [place] and 2 grandchildren, all of whom are healthy. He refuses to have a colonoscopy. * Medications: T akingVitamin D3 25 MCG (1000 UT) Tablet TAKE 1 TABLET BY MOUTH EVERY DAY FOR 30 DAYS Lisinopril-hydroCHLOROthiazide 20-25 MG Tablet TAKE 1 TABLET BY MOUTH EVERY DAY Terbinafine HCl 1 % Cream 1 application Externally Once a day, stop date 06/19/2024Lisinopril-hydroCHLOROthiazide 20-25 MG Tablet 1 tablet Orally Once a dayVitamin D 25 MCG (1000 UT) Tablet 1 tablet Orally Once a day, stop date 11/17/2024Triamcinolone Acetonide 0.1 % Cream 1 application Externally three times a dayAleve 220 MG Tablet 1 tablet with food or milk as needed Orally every 12 hrsAtorvastatin Calcium 10 MG Tablet TAKE 1 TABLET BY MOUTH EVERY DAY Triamcinolone Acetonide 0.5 % Cream APPLY EXTERNALLY 3 TIMES A DAY FOR 7 DAYS Medication List reviewed and reconciled with the patientTaking Vitamin D3 25 MCG (1000 UT) Tablet TAKE 1 TABLET BY MOUTH EVERY DAY FOR 30 DAYS Taking Lisinopril- hydroCHLOROthiazide 20-25 MG Tablet TAKE 1 TABLET BY MOUTH EVERY DAY Taking Terbinafine HCl 1 % Cream 1 application Externally Once a day, stop date 06/19/2024Taking Lisinopril-hydroCHLOROthiazide 20-25 MG Tablet 1 tablet Orally Once a dayTaking Vitamin D 25 MCG (1000 UT) Tablet 1 tablet Orally Once a day, stop date 11/17/2024Taking Triamcinolone Acetonide 0.1 % Cream 1 application Externally three times a dayTaking Aleve 220 MG Tablet 1 tablet with food or milk as needed Orally every 12 hrsTaking Atorvastatin Calcium 10 MG Tablet TAKE 1 TABLET BY MOUTH EVERY DAY Taking Triamcinolone Acetonide 0.5 % Cream APPLY EXTERNALLY 3 TIMES A DAY FOR 7 DAYS Medication List reviewed and reconciled with the patient * Allergies: N o Known Drug Allergyno[Allergies Verified] Objective: * Vitals: H t: 67, Wt:125, BMI:19.58, BP:107/65, HR:72, Temp:97.7, Wt-k.7. * Examination: G eneral Examination: GENERAL APPEARANCE: p leasant, well nourished, well developed, in no acute distress, calm and relaxed , underweight , man. HEAD: a traumatic, normocephalic. EYES: e reshma, perrla, anicteric, conjugate. EARS: n ormal. NOSE: s eptum intact. ORAL CAVITY: n ormal, unremarkable. NECK/THYROID: n o jugular venous distention, no carotid bruit, thyroid normal. LYMPH NODES: n o enlarged lymph nodes,spleen normal. SKIN: n o suspicious lesions, anicteric, Rash on his foot has resolved, faint traces of pityriasis present on the abdominal wall. HEART: n o clicks, gallops, murmurs, or rubs, regular rhythm, S1, S2 normal, no s3, or vascular bruits. LUNGS: c lear to auscultation . BREASTS: no masses palpable bilaterally. ABDOMEN: b owel sounds normal, no ascites, no organomegaly, no mass. RECTAL EXAM: n ot examined. MUSCULOSKELETAL: e xtremities unremarkable, no clubbing, cyanosis or edema. PERIPHERAL PULSES: n ormal. NEUROLOGIC: a lert and oriented, cranial nerves 2-12 grossly intact, deep tendon reflexes 2+ symmetrical, motor strength normal upper and lower extremities, sensory exam intact. PSYCH: a lert, oriented. Assessment: * Assessment: 1. F ungal dermatitis - B36.9 (Primary), This is completely resolved with terbinafine. 2 .?Mixed hyperlipidemia - E78.2, A fasting lipid profile has been ordered prior to his next visit. 3. B PH (benign prostatic hyperplasia) - N40.0, He says he rises from sleep once a night to urinate at most. We discussed lifestyle modification as a way to reduce nocturia. 4 . V itamin D deficiency - E55.9, He was continued on supplementation. Plan: * Treatment: 2. M ixed hyperlipidemia L AB: PROFILE, FASTING (COMPREHENSIVE METABOLIC) L AB: PSA, TOTAL L AB: CBC WITH AUTO DIFF L AB: Lipid Panel L AB: Vitamin D 25-OH Total 3. B PH (benign prostatic hyperplasia) L AB: PROFILE, FASTING (COMPREHENSIVE METABOLIC) L AB: PSA, TOTAL L AB: CBC WITH AUTO DIFF L AB: Lipid Panel L AB: Vitamin D 25-OH Total 4. V itamin D deficiency L AB: PROFILE, FASTING (COMPREHENSIVE METABOLIC) L AB: PSA, TOTAL L AB: CBC WITH AUTO DIFF L AB: Lipid Panel L AB: Vitamin D 25-OH Total 5. O thers Continue Vitamin D3 Tablet, 25 MCG (1000 UT), TAKE 1 TABLET BY MOUTH EVERY DAY FOR 30 DAYS; C ontinue Lisinopril-hydroCHLOROthiazide Tablet, 20-25 MG, TAKE 1 TABLET BY MOUTH EVERY DAY; C ontinue Terbinafine HCl Cream, 1 %, 1 application, Externally, Once a day; C ontinue Lisinopril-hydroCHLOROthiazide Tablet, 20-25 MG, 1 tablet, Orally, Once a day; C ontinue Vitamin D Tablet, 25 MCG (1000 UT), 1 tablet, Orally, Once a day; C ontinue Triamcinolone Acetonide Cream, 0.5 %, APPLY EXTERNALLY 3 TIMES A DAY FOR 7 DAYS. * Procedure Codes: * Preventive Medicine: Counseling: [...] Other reason not done * Follow Up: A s Scheduled (Reason: OV, Annual Exam) * Images: * Sign off status: Completed true * Provider: Manas Vega MD Date: 0 01/29/2024 Generated for Jaz ashley/Arlen/Kayeitting on: 07:10 AM EDT History and Physical Notes * [...] no acute distress, calm and relaxed , underweight , man HEAD: atraumatic, normocep halic EYES: [...] intact SKIN: no suspicious lesion s, anicteric, Rash on his foot has resolved, faint traces of pityriasis present on the abdominal wall PERIPHERAL PULSES: normal BREASTS: no masses palpable b ilaterally MUSCULOSKELETAL: extremities unremark able, no clubbing, cyanosis or edema LYMPH NODES: no enlarged lymph no marli,spleen normal RECTAL EXAM: not examined PSYCH: alert, oriented ORAL CAVITY: normal, unremarkable
--- OUTSIDE RECORDS SUMMARY | 2024-05-27 10:00 | XMS_ITS ---
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 Damion Vega III Primary Care Provider Allergies Allergen (clinical drug ingredient) Drug/Non Drug Allergy documented on EMR Reaction Allergy Type Onset Date Status No Known Drug Allergy Unknown Drug Allergy Active Results Component Value Reference Range Notes URINE DIP STICK Reviewed date:05/27/2024 02:44:05 PM Interpretation: Performing Lab: Notes/Report: SG 1.010 1.005 - 1.025 pH 6.5 5.0 - 9.0 EDMAR Negative Negative - NIT Negative Negative - PRO 15 Negative - Trace GLU Negative Negative - KET Negative Negative - UBG 0.2 0.1 - 1.8 SAMUEL Negative 0.2 - 1.3 BLD Negative Negative - REASON FOR VISIT Annual Exam Medications Medication SIG (Take, Route, Frequency, Duration) Notes Start Date End Date Status Triamcinolone Acetonide 0.5 % APPLY EXTERNALLY 3 TIMES A DAY FOR 7 DAYS Active Atorvastatin Calcium 10 MG TAKE 1 TABLET BY MOUTH EVERY DAY Active Triamcinolone Acetonide 0.1 % 1 application Externally three times a day 02/16/2020 Active Terbinafine HCl 1 % 1 application Rotating Field Assembler ally Once a day 11/23/2023 Active Vitamin D3 25 MCG (1000 UT) TAKE 1 TABLE T BY MOUTH EVERY DAY FOR 30 DAYS Active Aleve 220 MG 1 tablet with food o r milk as needed Orally every 12 hrs Active Lisinopril-hydroCHLOROthiaz bronwyn 20-25 MG 1 tablet Orally Once a day 11/23/2023 Active Vitamin D 25 MCG (1000 UT) 1 tablet Oral ly Once a day 11/23/2023 Active predniSONE 20 MG TAKE 1 TABLET BY SALAZAR TH EVERY DAY FOR 7 DAYS Active Social History Tobacco Use: Social History Observation Description Date Details (start date - stop date) Never Smoker NA - NA Sex Assigned At : Social History Observation Description Sex Assigned At Male Tobacco Control (Standard) Question Answer Notes Tobacco use: Nonsmoker Additional Findings: Tobacco non-user Aggressive nonsmoker AUDIT-C (Standard) Question Answer Notes Did you have a drink containing alcohol in the p ast year? No Points 0 Interpretation Negative Vital Signs Temperature 97.2 degrees Fahrenheit 05/27/20 24 Blood pressure systolic 134 mm Hg 05/27/20 24 Blood pressure diastolic 75 mm Hg 024 Heart Rate 68 /min 05/27/2024 Height 67 in 05/27/2024 Weight 130 lbs 05/27/2024 BMI 20.36 kg/m2 05/27/2024 Encounters Encounter Location Date Provider Diagnosis Damion Vega III, MD [address] [place] [address] [facility] [place] [address] 05/27/2024 Damion Vega Essential hypertensi on I10 ; Mixed hyperlipidemia E78.2 ; Pityriasis alba L30.5 ; Gout, unspecified M10.9 and BPH (benign prostatic hyperplasia) N40.0 Assessments Encounter Date Diagnosis (ICD Code) Assessment Notes Treat ment Notes Treatment Clinical Notes 05/27/2024 Essential hypertension (ICD-10 - I10) His blood pressure today is 34/75, and no change in his regimen is needed. 05/27/2024 Mixed hyperlipidemia (ICD-10 - E78.2) A fasting lipid profile has been ordered prior to his next visit. 05/27/2024 Pityriasis alba (ICD-10 - L30.5) He will be treated as needed. He has no symptoms today. The condition is very mild.I refilled his triamcinolone 05/27/2024 Gout, unspecified (ICD-10 - M10.9) No episodes of gout have taken place. A uric acid level will be checked periodically. 05/27/2024 BPH (benign prostati c hyperplasia) (ICD-10 - N40.0) He says he rises from sleep once a night to urinate at most. We discussed lifestyle modification as a way to reduce nocturia. Plan Of Treatment Medication Medication Name Sig Start Date Stop Date Notes Triamcinolone Acetonide 0.5 % APPLY EXTE RNALLY 3 TIMES A DAY FOR 7 DAYS Atorvastatin Calcium 10 MG TAKE 1 TABLET BY MOUTH EVERY DAY Triamcinolone Acetonide 0.1 % 1 applicat ion Externally three times a day 02/16/2020 Terbinafine HCl 1 % 1 application Rotating Field Assembler ally Once a day 11/23/2023 Vitamin D3 25 MCG (1000 UT) TAKE 1 TABLE T BY MOUTH EVERY DAY FOR 30 DAYS Aleve 220 MG 1 tablet with food o r milk as needed Orally every 12 hrs Lisinopril-hydroCHLOROthiazi de 20-25 MG 1 tablet Orally Once a day 11/23/2023 Vitamin D 25 MCG (1000 UT) 1 tablet Orally Once a day 10/29 predniSONE 20 MG TAKE 1 TABLET BY SALAZAR TH EVERY DAY FOR 7 DAYS Next Appt Details Follow Up: 4 Months, Reason: OV Provider Name:Damion Vega , 05/29/2025 01:45:00 PM, [address] [place] [address], [address], Progress Notes * Leobardo DEOB:[birth year] (68 yo M)Acc No.[id number]:05/27/2024 Progress Notes Patient: Tyler MINA Provider: Manas Vega MD :[id number] A ge:68 Y S ex:Male Date:05/27/2024 Address:[address] [place], [place] [id number] Subjective: * Chief Complaints: * A nnual Exam * HPI: D epression Screening: PHQ-9 L ittle interest or pleasure in doing things?Not at all F eeling down, depressed, or hopeless N ot at all T rouble falling or staying asleep, or sleeping too much N ot at all F eeling tired or having little energy N ot at all P oor appetite or overeating N ot at all F eeling bad about yourself or that you are a failure, or have let yourself or your family down N ot at all T rouble concentrating on things, such as reading the newspaper or watching television N ot at all M oving or speaking so slowly that other people could have noticed; or the opposite, being so fidgety or restless that you have been moving around a lot more than usual N ot at all T houghts that you would be better off or of hurting yourself in some way N ot at all T otal Score 0 C OVID-19 Screening: Questions H ave you experienced fever, chills, cough, sore throat, shortness of breath, difficulty breathing, muscle aches, loss of taste or smell? N o H ave you been exposed to the virus within the last 10 days? N o H ave you travelled internationally in the last 10 days? N o H ave you been exposed to COVID-19 in the past? N o S AUDREY Questions: SDOH Questions I n the past year have you been worried about losing your housing? N o I n the past year have you or any family members you live with been unable to get any of the following when it was really needed? Check all that apply: N one F all Risk Screening: Fall History H ave you had any falls with injury in the past year? N o H ave you had two or more falls in the past year? N o F all Risk Assessment: N o falls in the past year * : The patient, a 68-year-old male, has been feeling well overall. He has had some issues with his right knee, but it seems to have improved. He has not had any gout. He has been getting up at night to urinate. He has not had any heart trouble or diabetes. His blood work shows normal white blood cells, red blood cells, and platelets. His vitamin D, PSA, and cholesterol levels are good. His liver and kidneys are functioning well, and his blood sugar is 97. His blood pressure is normal, and his weight is within a healthy range. He has not had a colonoscopy before, but the doctor plans to schedule one. The doctor also checked his prostate and found it to be normal. The patient has never smoked. Blood Sugar Level is 97. * ROS: G eneral/Constitutional: pain o nly [...] enies. R hung d enies. S kin lesion(s)?denies. N eurologic: Difficulty speaking d enies. D izziness d enies.?Headache d enies. L ow back pain d enies. P sychiatric: Depressed mood d enies. C ancer Self-Management: Denies C olonoscopy. * Medical History: * Surgical History: i njury to a finger on the left hand requiring surgery 1999No history * Hospitalization/Major Diagno stic Procedure: N o history * Family History: F ather: 97 yrs, Alcoholism, cigarette smoker. M other: , cancer, diagnosed with Cancer. 1 brother(s) , 6 sister(s) . 1 son(s) - healthy. . His brother at 68 of some type of cancer in [place]. His sisters are alive and well. His son and grandchildren are alive and well. He is not aware of any hereditary malignancies in his family. * Social History: T obacco Use: T obacco Use/Smoking . Tobacco Control (Standard) T obacco use: N onsmoker A dditional Findings: Tobacco non-user A ggressive nonsmoker D rugs/Alcohol: D rugs H ave you used drugs other than those for medical reasons in the past 12 months? N o M iscellaneous: D omestic violence: no. D rug/Alcohol: A ELIF-C (Standard) D id you have a drink containing alcohol in the past year? 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 He lives and [place], [place]. He is not but has a relationship with Sherie. They have a son who lives in [place] and 2 grandchildren, all of whom are healthy. He refuses to have a colonoscopy. Work: Works for [employer] Smoking: Never smoked. * Medications: T akingVitamin D3 25 MCG (1000 UT) Tablet TAKE 1 TABLET BY MOUTH EVERY DAY FOR 30 DAYS Terbinafine HCl 1 % Cream 1 application Externally Once a day Lisinopril-hydroCHLOROthiazide 20-25 MG Tablet 1 tablet Orally Once a day Vitamin D 25 MCG (1000 UT) Tablet 1 tablet Orally Once a day Triamcinolone Acetonide 0.1 % Cream 1 application Externally three times a day Aleve 220 MG Tablet 1 tablet with food or milk as needed Orally every 12 hrs Atorvastatin Calcium 10 MG Tablet TAKE 1 TABLET BY MOUTH EVERY DAY predniSONE 20 MG Tablet TAKE 1 TABLET BY MOUTH EVERY DAY FOR 7 DAYS Taking Vitamin D3 25 MCG (1000 UT) Tablet TAKE 1 TABLET BY MOUTH EVERY DAY FOR 30 DAYS Taking Terbinafine HCl 1 % Cream 1 application Externally Once a day Taking Lisinopril-hydroCHLOROthiazide 20-25 MG Tablet 1 tablet Orally Once a day Taking Vitamin D 25 MCG (1000 UT) Tablet 1 tablet Orally Once a day Taking Triamcinolone Acetonide 0.1 % Cream 1 application Externally three times a day Taking Aleve 220 MG Tablet 1 tablet with food or milk as needed Orally every 12 hrs Taking Atorvastatin Calcium 10 MG Tablet TAKE 1 TABLET BY MOUTH EVERY DAY Taking predniSONE 20 MG Tablet TAKE 1 TABLET BY MOUTH EVERY DAY FOR 7 DAYS DiscontinuedLisinopril-hydroCHLOROthiazide 20-25 MG Tablet TAKE 1 TABLET BY MOUTH EVERY DAY Triamcinolone Acetonide 0.5 % Cream APPLY EXTERNALLY 3 TIMES A DAY FOR 7 DAYS Medication List reviewed and reconciled with the patientDiscontinued Lisinopril-hydroCHLOROthiazide 20-25 MG Tablet TAKE 1 TABLET BY MOUTH EVERY DAY Discontinued Triamcinolone Acetonide 0.5 % Cream APPLY EXTERNALLY 3 TIMES A DAY FOR 7 DAYS Medication List reviewed and reconciled with the patient * Allergies: N o Known Drug Allergyno[Allergies Verified] Objective: * Vitals: H t: 67, Wt:130, BMI:20.36, BP:134/75, HR:68, Temp:97.2, Wt-k.97. * P ast Orders: Lab:Complete Blood Count Aut o Diff * Collection Date 05/10/2024 05/12/2023 12/09/2022 Collection Time 07:32 AM 07:59 AM 07:18 AM Order Date 05/10/2024 05/12/2023 12/09/2022 White Blood Count 6.1 (Ref Range: 4.8-10.8 X10*3/uL) 5.9 (Ref Range: 4.8-10.8 X10*3/uL) 8.1 (Ref Range: 4.8-10.8 X10*3/uL) Red Blood Count 4.22 L (Ref Range: 4.60-5.80 X10*6/uL) 4.28 L (Ref Range: 4.60-5.80 X10*6/uL) 4.26 L (Ref Range: 4.60-5.80 X10*6/uL) Hemoglobin 12.7 L (Ref Range: 14.0-18.0 g/dl) 13.2 L (Ref Range: 14.0-18.0 g/dl) 13.1 L (Ref Range: 14.0-18.0 g/dl) Hematocrit 38.9 L (Ref Range: 42.0-52.0 %) 40.0 L (Ref Range: 42.0-52.0 %) 39.7 L (Ref Range: 42.0-52.0 %) Mean Corpuscular Volume 92.2 (Ref Range: 80.0-98.0 fL) 93.5 (Ref Range: 80.0-98.0 fL) 93.2 (Ref Range: 80.0-98.0 fL) Mean Corpuscular Hemoglobin 30.1 (Ref Range: 27.0-33.0 pg) 30.8 (Ref Range: 27.0-33.0 pg) 30.8 (Ref Range: 27.0-33.0 pg) Mean Corpuscular HGB Conc 32.6 (Ref Range: 31.0-36.0 g/dl) 33.0 (Ref Range: 31.0-36.0 g/dl) 33.0 (Ref Range: 31.0-36.0 g/dl) Red Cell Distribution Width 13.4 (Ref Range: 11.0-16.0 %) 13.5 (Ref Range: 11.0-16.0 %) 13.3 (Ref Range: 11.0-16.0 %) Platelet Count 195 (Ref Range: 160-400 X10*3/uL) 191 (Ref Range: 160-400 X10*3/uL) 168 (Ref Range: 160-400 X10*3/uL) Mean Platelet Volume 10.8 (Ref Range: 9.4-12.4 fL) 11.2 (Ref Range: 9.4-12.4 fL) 11.9 (Ref Range: 9.4-12.4 fL) Neutrophils Percent Auto 58.4 (Ref Range: 45-73 %) 55.8 (Ref Range: 45-73 %) 67.0 (Ref Range: 45-73 %) Imm Gran Pct Auto 0.3 (Ref Range: 0.0-0.4 %) 0.2 (Ref Range: 0.0-0.4 %) 0.2 (Ref Range: 0.0-0.4 %) Lymphocytes Percent Auto 27.9 (Ref Range: 20-40 %) 30.1 (Ref Range: 20-40 %) 22.8 (Ref Range: 20-40 %) Monocytes Percent Auto 9.6 (Ref Range: 2-11 %) 9.3 (Ref Range: 2-11 %) 7.0 (Ref Range: 2-11 %) Eosinophils Percent Auto 2.8 (Ref Range: 0-4 %) 3.4 (Ref Range: 0-4 %) 2.3 (Ref Range: 0-4 %) Basophils Percent Auto 1.0 (Ref Range: 0-2 %) 1.2 (Ref Range: 0-2 %) 0.7 (Ref Range: 0-2 %) NRBC Pct Auto 0.0 (Ref Range: 0.0-0.2 /100WBC) 0.0 (Ref Range: 0.0-0.2 /100WBC) 0.0 (Ref Range: 0.0-0.2 /100WBC) Neutrophils Absolute Auto 3.6 (Ref Range: 2.0-8.3 x10*3/uL) 3.3 (Ref Range: 2.0-8.3 x10*3/uL) 5.4 (Ref Range: 2.0-8.3 x10*3/uL) Imm Gran Abs Auto 0.02 (Ref Range: 0.00-0.03 X10*3/uL) 0.01 (Ref Range: 0.00-0.03 X10*3/uL) 0.02 (Ref Range: 0.00-0.03 X10*3/uL) Lymphocytes Absolute Auto 1.7 (Ref Range: 1.2-4.9 X10*3/uL) 1.8 (Ref Range: 1.2-4.9 X10*3/uL) 1.9 (Ref Range: 1.2-4.9 X10*3/uL) Monocytes Absolute Auto 0.6 (Ref Range: 0.1-1.2 X10*3/uL) 0.6 (Ref Range: 0.1-1.2 X10*3/uL) 0.6 (Ref Range: 0.1-1.2 X10*3/uL) Eosinophils Absolute Auto 0.2 (Ref Range: 0.0-0.4 X10*3/uL) 0.2 (Ref Range: 0.0-0.4 X10*3/uL) 0.2 (Ref Range: 0.0-0.4 X10*3/uL) Basophils Absolute Auto 0.1 (Ref Range: 0.0-0.2 X10*3/uL) 0.1 (Ref Range: 0.0-0.2 X10*3/uL) 0.1 (Ref Range: 0.0-0.2 X10*3/uL) NRBC Abs Auto 0.000 (Ref Range: 0.0-0.012 X10*3/uL) 0.000 (Ref Range: 0.0-0.012 X10*3/uL) 0.000 (Ref Range: 0.0-0.012 X10*3/uL) * Lab:Vitamin D 25-OH Total * Collection Date 05/10/2024 05/12/2023 09/09/2022 Collection Time 07:32 AM 07:59 AM 08:17 AM Order Date 05/10/2024 05/12/2023 09/09/2022 Vitamin D 25-OH Total 44.9 (Ref Range: >30 ng/mL) 56.3 (Ref Range: >30 ng/mL) 6.7 (Ref Range: >30 ng/mL) * Lab:Prostate Specific Antige n * Collection Date 05/10/2024 05/12/2023 09/09/2022 Collection Time 07:32 AM 07:59 AM 08:17 AM Order Date 05/10/2024 05/12/2023 09/09/2022 Prostate Specific Antigen 0.35 (Ref Range: <0.05-4.0 ng/mL) 0.34 (Ref Range: <0.05-4.0 ng/mL) 0.34 (Ref Range: <0.05-4.0 ng/mL) * Lab:Lipid Panel * Collection Date 05/10/2024 05/12/2023 12/09/2022 Collection Time 07:32 AM 07:59 AM 07:18 AM Order Date 05/10/2024 05/12/2023 12/09/2022 Triglycerides 88 (Ref Range: <150 mg/dL) 72 (Ref Range: <150 mg/dL) 77 (Ref Range: mg/dL) Cholesterol 221 H (Ref Range: <200 mg/dL) 219 H (Ref Range: <200 mg/dL) 231 (Ref Range: mg/dL) LDL Cholesterol Calculated 142 H (Ref Range: <100 mg/dL) 144 H (Ref Range: <100 mg/dL) 159 (Ref Range: mg/dl) HDL Cholesterol 62 (Ref Range: >40 mg/dL) 61 (Ref Range: >40 mg/dL) 57 (Ref Range: mg/dL) * Lab:Comprehensive Cantrall. Pane l Fast * Collection Date 05/10/2024 12/09/2022 09/09/2022 Collection Time 07:32 AM 07:18 AM 08:17 AM Order Date 05/10/2024 12/09/2022 09/09/2022 Sodium 140 (Ref Range: 135-145 mmol/L) 141 (Ref Range: 135-145 mmol/L) 142 (Ref Range: 135-145 mmol/L) Bilirubin Total 0.4 (Ref Range: 0.0-1.0 mg/dL) 1.0 (Ref Range: 0.0-1.0 mg/dL) 0.6 (Ref Range: 0.0-1.0 mg/dL) Aspartate Amino Transferase 27 (Ref Range: 5-37 U/L) 22 (Ref Range: 5-37 U/L) 26 (Ref Range: 5-37 U/L) Alanine Aminotransferase 30 (Ref Range: 0-40 U/L) 19 (Ref Range: 0-40 U/L) 26 (Ref Range: 0-40 U/L) Total Protein 7.5 (Ref Range: 6.5-8.0 g/dL) 7.1 (Ref Range: 6.5-8.0 g/dL) 7.0 (Ref Range: 6.5-8.0 g/dL) Albumin Level 4.2 (Ref Range: 3.5-5.0 g/dL) 4.2 (Ref Range: 3.5-5.0 g/dL) 4.2 (Ref Range: 3.5-5.0 g/dL) Alkaline Phosphatase 57 (Ref Range: 39-117 U/L) 61 (Ref Range: 39-117 U/L) 61 (Ref Range: 39-117 U/L) Potassium 5.0 (Ref Range: 3.3-5.1 mmol/L) 4.4 (Ref Range: 3.3-5.1 mmol/L) 4.5 (Ref Range: 3.3-5.1 mmol/L) Chloride 104 (Ref Range: 96-108 mmol/L) 103 (Ref Range: 96-108 mmol/L) 106 (Ref Range: 96-108 mmol/L) Carbon Dioxide 31 H (Ref Range: 22-29 mmol/L) 28 (Ref Range: 22-29 mmol/L) 28 (Ref Range: 22-29 mmol/L) Anion Gap 10 L (Ref Range: 12-20) 14 (Ref Range: 12-20) 13 (Ref Range: 12-20) Blood Urea Nitrogen 32 H (Ref Range: 9-16 mg/dL) 31 H (Ref Range: 9-16 mg/dL) 28 H (Ref Range: 9-16 mg/dL) Creatinine 1.37 (Ref Range: 0.5-1.4 mg/dL) 1.32 (Ref Range: 0.5-1.4 mg/dL) 1.16 (Ref Range: 0.5-1.4 mg/dL) Estimated Glomerular Filt Rate 52 54 > 60 Glucose Fasting 97 (Ref Range: 60-99 mg/dL) 80 (Ref Range: 60-99 mg/dL) 94 (Ref Range: 60-99 mg/dL) Calcium 10.5 H (Ref Range: 8.4-10.2 mg/dL) 10.1 (Ref Range: 8.4-10.2 mg/dL) 9.6 (Ref Range: 8.4-10.2 mg/dL) * Examination: G eneral Examination: GENERAL APPEARANCE: p leasant, well nourished, well developed, in no acute distress, calm and relaxed, man. HEAD: a traumatic, normocephalic. EYES: e reshma, perrla, anicteric, conjugate. EARS: n ormal. NOSE: s eptum intact. ORAL CAVITY: n ormal, unremarkable. NECK/THYROID: n o jugular venous distention, no carotid bruit, thyroid normal. LYMPH NODES: n o enlarged lymph nodes,spleen normal. SKIN: n o suspicious lesions, anicteric. HEART: n o clicks, gallops, murmurs, or rubs, regular rhythm, S1, S2 normal, no s3, or vascular bruits. LUNGS: c lear to auscultation . BREASTS: no masses palpable bilaterally. ABDOMEN: b owel sounds normal, no ascites, no organomegaly, no mass. RECTAL EXAM: U nremarkable. MUSCULOSKELETAL: e xtremities unremarkable, no clubbing, cyanosis or edema. PERIPHERAL PULSES: n ormal. NEUROLOGIC: a lert and oriented, cranial nerves 2-12 grossly intact, deep tendon reflexes 2+ symmetrical, motor strength normal upper and lower extremities, sensory exam intact. PSYCH: a lert, oriented. - : B lood pressure check:Normal Blood work:Normal Prostate check:Normal Hernia check:No hernias detected Stool test:No blood detected. Assessment: * Assessment: 1. E ssential hypertension - I10 (Primary) N otes :His blood pressure today is 34/75, and no change in his regimen is needed. 2 . M ixed hyperlipidemia - E78.2 N otes :A fasting lipid profile has been ordered prior to his next visit. 3 . P ityriasis alba - L30.5 N otes :He will be treated as needed. He has no symptoms today. The condition is very mild.I refilled his triamcinolone 4 . G out, unspecified - M10.9 N otes :No episodes of gout have taken place. A uric acid level will be checked periodically. 5 . B PH (benign prostatic hyperplasia) - N40.0 N otes :He says he rises from sleep once a night to urinate at most. We discussed lifestyle modification as a way to reduce nocturia. Plan: * Treatment: 2. O thers Continue predniSONE Tablet, 20 MG, TAKE 1 TABLET BY MOUTH EVERY DAY FOR 7 DAYS; C ontinue Vitamin D3 Tablet, 25 MCG (1000 UT), TAKE 1 TABLET BY MOUTH EVERY DAY FOR 30 DAYS; C ontinue Terbinafine HCl Cream, 1 %, 1 application, Externally, Once a day; C ontinue Lisinopril-hydroCHLOROthiazide Tablet, 20-25 MG, 1 tablet, Orally, Once a day; C ontinue Vitamin D Tablet, 25 MCG (1000 UT), 1 tablet, Orally, Once a day; C ontinue Aleve Tablet, 220 MG, 1 tablet with food or milk as needed, Orally, every 12 hrs; C ontinue Atorvastatin Calcium Tablet, 10 MG, TAKE 1 TABLET BY MOUTH EVERY DAY; C ontinue Triamcinolone Acetonide Cream, 0.5 %, APPLY EXTERNALLY 3 TIMES A DAY FOR 7 DAYS. * Labs: * L ab: URINE DIP STICK (Collection Date & Time - 05/27/2024) Value Reference Range S G 1.010 1.005 - 1.025 * p H 6.5 5.0 - 9.0 * L EU Negative Negative - * N IT Negative Negative - * P RO 15 Negative - Trace * G KWAME Negative Negative - * K ET Negative Negative - * U BG 0.2 0.1 - 1.8 * B IL Negative 0.2 - 1.3 * B LD Negative Negative - * Procedure Codes: 8 1002 URINE-NO MICRO * Preventive Medicine: Counseling: C are goal follow-up plan: Counseling for abnormal BMI given Y es Below Normal BMI Follow-up D ietary education for weight gain, Dietary management education, guidance, and counseling, Feeding regime, Lifestyle education regarding diet, Nutrition / feeding management, Prescribed diet education, Special diet education, Intervention, Order not done: Medical or Other reason not done * Follow Up: 4 Months (Reason: OV) * Images: * Sign off status: Completed true * Provider: Manas Vega MD Date: 1 Generated for Printi ng/Fasuryg/eTransmitting on: 07:09 AM EDT History and Physical Notes * HPI (History of Present Illness) Category Sub-Category Detail Notes Depression Screening PHQ-9 Little inte rest or pleasure in doing things: Not at all Feeling down, depressed, or hopeless: No t at all Trouble falling or staying asleep, or sl eeping too much: Not at all Feeling tired or having little energy: N ot at all Poor appetite or overeating: Not at all Feeling bad about yourself o r that you are a failure, or have let yourself or your family down: Not at all Trouble concentrating on thi ngs, such as reading the newspaper or watching television: Not at all Moving or speaking so slowly that other people could have noticed; or the opposite, being so fidgety or restless that you have been moving around a lot more than usual: Not at all Thoughts that you would be b jason off or of hurting yourself in some way: Not at all Total Score: 0 Fall Risk Screening Fall History Have you had any falls with injury in the past year?: No Have you had two or more falls in the ?: No Fall Risk Assessment:: No falls in the year COVID-19 Screening Questions Have you had any new onset fever, chills, cough, congestion, sore throat, shortness of breath, muscle aches?: No Have you been exposed to the virus withi n the last 10 days?: No Have you travelled internationally in last 10 days?: No Have you been exposed to COVID-19 in the past?: No SDOH Questions SDOH Questions In the past year have you been worried about losing your housing?: No In the past year have you or any family members you live with been unable to get any of the following when it was really needed? Check all that apply:: None Examination Category Sub-Category Detail Notes General Examination GENERAL APPEARANCE: pleasant , well nourished, well developed, in no acute distress, calm and relaxed, man HEAD: atraumatic, normocep halic EYES: eomi, [...] exam intact SKIN: no suspicious lesion s, anicteric PERIPHERAL PULSES: normal BREASTS: no masses palpable b ilaterally MUSCULOSKELETAL: extremities unremark able, no clubbing, cyanosis or edema LYMPH NODES: no enlarged lymph no marli,spleen normal RECTAL EXAM: Unremarkable PSYCH: alert, oriented ORAL CAVITY: normal, unremarkable
--- OUTSIDE RECORDS SUMMARY | 2024-09-26 09:30 | XMS_ITS ---
Author Organization Damion Vega III, MD Address [address] [address] Care Team Providers Care Pediatric Neuropsychologist Name Role Phone Dr. Damion Vega III Primary Care Provider Allergies Allergen (clinical drug ingredient) Drug/Non Drug Allergy documented on EMR Reaction Allergy Type Onset Date Status No Known Drug Allergy Unknown Drug Allergy Active Results Component Value Reference Range Notes Uric Acid Reviewed date:01/30/2025 07:25:47 PM Interpretation: Performing Lab:[facility], [address] [place] [id number] Notes/Report: Uric Acid 7.5 3.4-7.0 mg/dL Lipid Panel Reviewed date:01/30/2025 07:25:47 PM Interpretation: Performing Lab:[facility], [address] [place] [id number] Notes/Report: Triglycerides 100 <150 mg/dL Desirable Triglyceride: less than 150 mg/dL Borderline High Triglyceride 150-199 mg/dL High Triglyceride: 200-499 mg/dL Very High Triglyceride: greater than or equal to 5OO mg/dL Cholesterol 233 <200 mg/dL Desirable Cholesterol: less than 200 mg/dL Borderline High Cholesterol: 200-239 mg/dL High Cholesterol: greater than 239 mg/dL LDL Cholesterol Calculated 150 <100 mg/dL Desirable LDL: less than 100 mg/dL Near Optimal/Above Optimal LDL: 110-129 mg/dL Borderline High LDL: 130-159 mg/dL High LDL: 160-189 mg/dL Very High LDL: greater than or equal to 190 mg/dL HDL Cholesterol 63 >40 mg/dL Desirable HDL: greater than 40 mg/dL Note: This HDL assay may give artificially low results in patients with liver disease. REASON FOR VISIT Hypertension, pityriasis, Benign prostatic hypertrophy, gout Medications Medication SIG (Take, Route, Frequency, Duration) Notes Start Date End Date Status Atorvastatin Calcium 10 MG TAKE 1 TABLET BY MOUTH EVERY DAY Active Triamcinolone Acetonide 0.5 % APPLY EXTERNALLY 3 TIMES A DAY FOR 7 DAYS Active Triamcinolone Acetonide 0.1 % 1 application Externally three times a day for 30 days 02/16/2020 Active Vitamin D 25 MCG (1000 UT) 1 tablet Oral ly Once a day 11/23/2023 Active Aleve 220 MG 1 tablet with food o r milk as needed Orally every 12 hrs Active Lisinopril-hydroCHLOROthiaz bronwyn 20-25 MG 1 tablet Orally Once a day 11/23/2023 Active predniSONE 20 MG TAKE 1 TABLET BY SALAZAR TH EVERY DAY FOR 7 DAYS Active Vitamin D3 25 MCG (1000 UT) TAKE 1 TABLE T BY MOUTH EVERY DAY FOR 30 DAYS Active Terbinafine HCl 1 % 1 application Shooter'S Helper ally Once a day 11/23/2023 Active Social [...] Points 0 Interpretation Negative Vital Signs Temperature 97.3 degrees Fahrenheit 09/26/19 25 Blood pressure systolic 112 mm Hg 09/26/19 25 Blood pressure diastolic 77, 112 mm Hg 025 Heart Rate 74 /min 09/26/2024 Height 67 in 09/26/2024 Weight 135, 135.0 lbs 09/26/2024 BMI 21.14 kg/m2 09/26/2024 Encounters Encounter Location Date Provider Diagnosis Damion Vega III, MD [address] [place] [address] [place] [phone] 09/26/2024 Damion Vega Essential hypertensi on I10 ; Mixed hyperlipidemia E78.2 ; Pityriasis alba L30.5 ; Right knee pain M25.561 and Gout, unspecified M10.9 Assessments Encounter Date Diagnosis (ICD Code) Assessment Notes Treat ment Notes Treatment Clinical Notes 09/26/2024 Essential hypertension (ICD-10 - I10) His blood pressure today is controlled, and no change in his regimen is needed. 09/26/2024 Mixed hyperlipidemia (ICD-10 - E78.2) A fasting lipid profile has been ordered prior to his next visit. 09/26/2024 Pityriasis alba (ICD-10 - L30.5) He will be treated as needed. He has no symptoms today. The condition is very mild.I refilled his triamcinolone 09/26/2024 Right knee pain (ICD-10 - M25.561) He has occasional right knee pain, but it has improved in the last few months. He was instructed to notify me if it worsens. He will remain active. 09/26/2024 Gout, unspecified (ICD-10 - M10.9) No episodes of gout have taken place. A uric acid level will be checked periodically. Plan Of Treatment Medication Medication Name Sig Start Date Stop Date Notes Atorvastatin Calcium 10 MG TAKE 1 TABLET BY MOUTH EVERY DAY Triamcinolone Acetonide 0.5 % APPLY EXTE RNALLY 3 TIMES A DAY FOR 7 DAYS Triamcinolone Acetonide 0.1 % 1 applicat ion Externally three times a day for 30 days 02/16/2020 Vitamin D 25 MCG (1000 UT) 1 tablet Orally Once a day 10/29 Aleve 220 MG 1 tablet with food o r milk as needed Orally every 12 hrs Lisinopril-hydroCHLOROthiazi de 20-25 MG 1 tablet Orally Once a day 11/23/2023 predniSONE 20 MG TAKE 1 TABLET BY SALAZAR TH EVERY DAY FOR 7 DAYS Vitamin D3 25 MCG (1000 UT) TAKE 1 TABLE T BY MOUTH EVERY DAY FOR 30 DAYS Terbinafine HCl 1 % 1 application Shooter'S Helper ally Once a day 11/23/2023 Pending Test Test Name Order Date PROFILE, FASTING (COMPREHENSIVE METABOLI C) 09/26/2024 PSA, TOTAL 09/26/2024 CBC WITH AUTO DIFF 09/26/2024 Next Appt Details Follow Up: 4 Months, In four months, Reason: OV, Routine checkup Provider Name:Damion Flanneryrne , 05/29/2025 01:45:00 PM, [address] [place] [address] DR, ALBER Apoorva, AMEL[place], SHAKA, [phone], Progress Notes * Leobardo DEOB:[birth year] (68 yo M)Acc No.[id number]:09/26/2024 Progress Notes Patient: Tyler MINA Provider: Manas Vega MD :1955 A ge:68 Y S ex:Male Date:09/26/2024 Address:[address] [place], [place] [id number] Subjective: * Chief Complaints: * H ypertensionPityriasisBenign prostatic hypertrophyGout * HPI: C OVID-19 Screening: Questions H ave you had any new onset fever, chills, cough, congestion, sore throat, shortness of breath, muscle aches? N o * : The patient, a 68-year-old male, reported no new troubles and overall felt good. He mentioned that he is sleeping well and his right knee is in good condition. He reported getting up once at night to go to the bathroom. He also mentioned some spots on his skin that he was worried about. The patient has been taking good care of himself and his heart is not enlarged. He has been on medication, which he has been taking regularly. * ROS: G eneral/Constitutional: pain o nly [...] S kin: Itching d enies. R hung i mproved. S kin lesion(s) d enies. N eurologic: [...] 69 of some type of cancer in [place]. His sisters are alive and well. His son and grandchildren are alive and well. He is not aware of any hereditary malignancies in his family. 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 He is not but has a relationship with [employer]. They have a son who lives in [place] and 2 grandchildren, all of whom are healthy. He refuses to have a colonoscopy. Work: Works for [employer] Smoking: Never smoked Patient has stopped drinking for almost four years. * Medications: T akingVitamin D3 25 MCG (1000 UT) Tablet TAKE 1 TABLET BY MOUTH EVERY DAY FOR 30 DAYS Lisinopril-hydroCHLOROthiazide 20-25 MG Tablet 1 tablet Orally Once a day Vitamin D 25 MCG (1000 UT) Tablet 1 tablet Orally Once a day Aleve 220 MG Tablet 1 tablet with food or milk as needed Orally every 12 hrs Atorvastatin Calcium 10 MG Tablet TAKE 1 TABLET BY MOUTH EVERY DAY Triamcinolone Acetonide 0.1 % Cream 1 application Externally three times a day Taking Vitamin D3 25 MCG (1000 UT) Tablet TAKE 1 TABLET BY MOUTH EVERY DAY FOR 30 DAYS Taking Lisinopril-hydroCHLOROthiazide 20-25 MG Tablet 1 tablet Orally Once a day Taking Vitamin D 25 MCG (1000 UT) Tablet 1 tablet Orally Once a day Taking Aleve 220 MG Tablet 1 tablet with food or milk as needed Orally every 12 hrs Taking Atorvastatin Calcium 10 MG Tablet TAKE 1 TABLET BY MOUTH EVERY DAY Taking Triamcinolone Acetonide 0.1 % Cream 1 application Externally three times a day DiscontinuedpredniSONE 20 MG Tablet TAKE 1 TABLET BY MOUTH EVERY DAY FOR 7 DAYS Terbinafine HCl 1 % Cream 1 application Externally Once a day Triamcinolone Acetonide 0.5 % Cream APPLY EXTERNALLY 3 TIMES A DAY FOR 7 DAYS Medication List reviewed and reconciled with the patientDiscontinued predniSONE 20 MG Tablet TAKE 1 TABLET BY MOUTH EVERY DAY FOR 7 DAYS Discontinued Terbinafine HCl 1 % Cream 1 application Externally Once a day Discontinued Triamcinolone Acetonide 0.5 % Cream APPLY EXTERNALLY 3 TIMES A DAY FOR 7 DAYS Medication List reviewed and reconciled with the patient * Allergies: N o Known Drug Allergyno[Allergies Verified] Objective: * Vitals: H t: 67, Wt: 135,135.0, BMI:21.14, BP: 112/77,112/77, HR:74, Temp:97.3, Wt-k.23. * Examination: G eneral Examination: GENERAL APPEARANCE: [...] normal. SKIN: n o suspicious lesions, anicteric, Mild pityriasis.? HEART: n o clicks, gallops, murmurs, or [...] a lert, oriented. Assessment: * Assessment: 1. E ssential hypertension - I10 (Primary) N otes :His blood pressure today is controlled, and no change in his regimen is needed. 2 . M ixed hyperlipidemia - E78.2 N otes :A fasting lipid profile has been ordered prior to his next visit. 3 . P ityriasis alba - L30.5 N otes :He will be treated as needed. He has no symptoms today. The condition is very mild.I refilled his triamcinolone 4 . R ight knee pain - M25.561 N otes :He has occasional right knee pain, but it has improved in the last few months. He was instructed to notify me if it worsens. He will remain active. 5 . G out, unspecified - M10.9 N otes :No episodes of gout have taken place. A uric acid level will be checked periodically. Plan: * Treatment: 2. M ixed hyperlipidemia L AB: PROFILE, FASTING (COMPREHENSIVE METABOLIC) L AB: PSA, TOTAL L AB: CBC WITH AUTO DIFF L AB: Uric Acid L AB: Lipid Panel 3. G out, unspecified L AB: PROFILE, FASTING (COMPREHENSIVE METABOLIC) L AB: PSA, TOTAL L AB: CBC WITH AUTO DIFF L AB: Uric Acid L AB: Lipid Panel 4. O thers Continue predniSONE Tablet, 20 MG, [...] FOR 7 DAYS. * Procedure Codes: * Follow Up: 4 Months, In four months (Reason: OV, Routine checkup) * Images: * Sign off status: Completed true * Provider: Manas Vega MD Date: 0 09/26/2024 Generated for Parki gabi/Arlen/Andrew on: 07:09 AM EDT History and Physical Notes * HPI (History of Present Illness) Category Sub-Category Detail Notes COVID-19 Screening Questions Have you had any new onset fever, chills, cough, congestion, sore throat, shortness of breath, muscle aches?: No Examination Category Sub-Category Detail Notes General [...] intact SKIN: no suspicious lesion s, anicteric, Mild pityriasis PERIPHERAL PULSES: normal BREASTS: no masses palpable b ilaterally MUSCULOSKELETAL: extremities unremark able, no clubbing, cyanosis or edema LYMPH NODES: no enlarged lymph no marli,spleen normal RECTAL EXAM: not examined PSYCH: alert, oriented ORAL CAVITY: normal, unremarkable
--- OUTSIDE RECORDS SUMMARY | 2025-01-26 10:30 | XMS_ITS ---
Author Organization Damion Vega III, MD Address [address] [facility] [place] [address] Care Team Providers Care Communications Equipment Supervisor Name Role Phone Dr. Damion Vega III Primary Care Provider Allergies Allergen (clinical drug ingredient) Drug/Non Drug Allergy documented on EMR Reaction Allergy Type Onset Date Status No Known Drug Allergy Unknown Drug Allergy Active REASON FOR VISIT Hypertension, Hyperlipidemia, Pityriasis, Benign prostatic hypertrophy, gout Medications Medication SIG (Take, Route, Frequency, Duration) Notes Start Date End Date Status Triamcinolone Acetonide 0.1 % 1 application Externally three times a day 02/16/2020 Active Atorvastatin Calcium 10 MG TAKE 1 TABLET BY MOUTH EVERY DAY Active Triamcinolone Acetonide 0.5 % APPLY EXTERNALLY 3 TIMES A DAY FOR 7 DAYS Active Terbinafine HCl 1 % 1 application Head Sulfide Operator ally Once a day 11/23/2023 Active Aleve 220 MG 1 tablet with food o r milk as needed Orally every 12 hrs Active predniSONE 20 MG TAKE 1 TABLET BY SALAZAR TH EVERY DAY FOR 7 DAYS Active Vitamin D3 25 MCG (1000 UT) TAKE 1 TABLE T BY MOUTH EVERY DAY FOR 90 DAYS Active Lisinopril-hydroCHLOROthiaz bronwyn 20-25 MG TAKE 1 TABLET BY MOUTH EVERY DAY FOR 90 DAYS Active Social History Tobacco Use: Social History Observation Description Date Details (start date - stop date) Never Smoker NA - NA Sex Assigned At : Social History Observation Description Sex Assigned At Male Tobacco Control (Standard) Question Answer Notes Tobacco use: Nonsmoker Additional Findings: Tobacco non-user Aggressive nonsmoker Vital Signs Temperature 98.4 degrees Fahrenheit 01/27/20 25 Blood pressure systolic 109 mm Hg 01/27/20 25 Blood pressure diastolic 71 mm Hg 025 Heart Rate 71 /min 01/26/2025 Height 67 in 01/26/2025 Weight 135 lbs 01/26/2025 BMI 21.14 kg/m2 01/26/2025 Encounters Encounter Location Date Provider Diagnosis Damion Vega III, MD [address] [place] [address] DR [place], [place] [id number] 01/26/2025 Damion Vega Essential hypertensi on I10 ; Mixed hyperlipidemia E78.2 ; Pityriasis alba L30.5 ; Right knee pain M25.561 and Gout, unspecified M10.9 Assessments Encounter Date Diagnosis (ICD Code) Assessment Notes Treat ment Notes Treatment Clinical Notes 01/26/2025 Essential hypertension (ICD-10 - I10) His blood pressure today is controlled, and no change in his regimen is needed. 01/26/2025 Mixed hyperlipidemia (ICD-10 - E78.2) A fasting lipid profile has been ordered prior to his next visit. 01/26/2025 Pityriasis alba (ICD-10 - L30.5) He will be treated as needed. He has no symptoms today. The condition is very mild.I refilled his triamcinolone 01/26/2025 Right knee pain (ICD-10 - M25.561) He has occasional right knee pain, but it has improved in the last few months. He was instructed to notify me if it worsens. He will remain active. 01/26/2025 Gout, unspecified (ICD-10 - M10.9) No episodes of gout have taken place. A uric acid level will be checked periodically. Plan Of Treatment Medication Medication Name Sig Start Date Stop Date Notes Triamcinolone Acetonide 0.1 % 1 applicat ion Externally three times a day 02/16/2020 Atorvastatin Calcium 10 MG TAKE 1 TABLET BY MOUTH EVERY DAY Triamcinolone Acetonide 0.5 % APPLY EXTE RNALLY 3 TIMES A DAY FOR 7 DAYS Terbinafine HCl 1 % 1 application Head Sulfide Operator ally Once a day 11/23/2023 Aleve 220 MG 1 tablet with food o r milk as needed Orally every 12 hrs predniSONE 20 MG TAKE 1 TABLET BY SALAZAR TH EVERY DAY FOR 7 DAYS Vitamin D3 25 MCG (1000 UT) TAKE 1 TABLE T BY MOUTH EVERY DAY FOR 90 DAYS Lisinopril-hydroCHLOROthiazi de 20-25 MG TAKE 1 TABLET BY MOUTH EVERY DAY FOR 90 DAYS Pending Test Test Name Order Date PROFILE, FASTING (COMPREHENSIVE METABOLI C) 01/26/2025 PSA, TOTAL 01/26/2025 CBC w DIFF 01/26/2025 Lipid Panel 01/26/2025 Next Appt Details Follow Up: As Scheduled, Marlin son: Annual Exam Provider Name:Damion Vega , 05/29/2025 01:45:00 PM, [address] [place] [address], [address], [id number], Progress Notes * Leobardo DEOB:[birth year] (69 yo M)Acc No.[id number]:01/26/2025 Progress Notes Patient: Tyler MINA Provider: Manas Vega MD :1955 A ge:69 Y S ex:Male Date:01/26/2025 Address:[address] [place], [place] [id number] Subjective: * Chief Complaints: * H ypertensionHyperlipidemiaPityriasisBenign prostatic hypertrophyGout * HPI: C OVID-19 Screening: Questions H ave you had any new onset fever, chills, cough, congestion, sore throat, shortness of breath, muscle aches? N o * ROS: G eneral/Constitutional: pain R ight knee. C hills d enies. F atigue?admits. F ever d enies. E NT: Decreased [...] 69 of some type of cancer in [place]. His sisters are alive and well. His son and grandchildren are alive and well. He is not aware of any hereditary malignancies in his family. 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 He lives and [place], [place]. He is not but has a relationship with [employer]. They have a son who lives in [place] and 2 grandchildren, all of whom are healthy. He refuses to have a colonoscopy. Work: Works for [employer] Smoking: Never smoked Patient has stopped drinking for almost four years. * Medications: T akingpredniSONE 20 MG Tablet TAKE 1 TABLET BY MOUTH EVERY DAY FOR 7 DAYS Terbinafine HCl 1 % Cream 1 application Externally Once a day Aleve 220 MG Tablet 1 tablet with food or milk as needed Orally every 12 hrs Atorvastatin Calcium 10 MG Tablet TAKE 1 TABLET BY MOUTH EVERY DAY Triamcinolone Acetonide 0.1 % Cream 1 application Externally three times a day Lisinopril-hydroCHLOROthiazide 20-25 MG Tablet TAKE 1 TABLET BY MOUTH EVERY DAY FOR 90 DAYS Vitamin D3 25 MCG (1000 UT) Tablet TAKE 1 TABLET BY MOUTH EVERY DAY FOR 90 DAYS Taking predniSONE 20 MG Tablet TAKE 1 TABLET BY MOUTH EVERY DAY FOR 7 DAYS Taking Terbinafine HCl 1 % Cream 1 application Externally Once a day Taking Aleve 220 MG Tablet 1 tablet with food or milk as needed Orally every 12 hrs Taking Atorvastatin Calcium 10 MG Tablet TAKE 1 TABLET BY MOUTH EVERY DAY Taking Triamcinolone Acetonide 0.1 % Cream 1 application Externally three times a day Taking Lisinopril-hydroCHLOROthiazide 20-25 MG Tablet TAKE 1 TABLET BY MOUTH EVERY DAY FOR 90 DAYS Taking Vitamin D3 25 MCG (1000 UT) Tablet TAKE 1 TABLET BY MOUTH EVERY DAY FOR 90 DAYS DiscontinuedTriamcinolone Acetonide 0.5 % Cream APPLY EXTERNALLY 3 TIMES A DAY FOR 7 DAYS Medication List reviewed and reconciled with the patientDiscontinued Triamcinolone Acetonide 0.5 % Cream APPLY EXTERNALLY 3 TIMES A DAY FOR 7 DAYS Medication List reviewed and reconciled with the patient * Allergies: N o Known Drug Allergyno[Allergies Verified] Objective: * Vitals: H t: 67, Wt:135, BMI:21.14, BP:109/71, HR:71, Temp:98.4, Wt-k.23. * Examination: G eneral Examination: GENERAL [...] xtremities unremarkable, no clubbing, cyanosis or edema, Normal range of motion right knee, no right knee effusion. PERIPHERAL PULSES: n ormal. NEUROLOGIC: a lert [...] L AB: PSA, TOTAL L AB: CBC w DIFF L AB: Lipid Panel 3. O thers Continue Vitamin D3 Tablet, 25 MCG (1000 UT), TAKE 1 TABLET BY MOUTH EVERY DAY FOR 90 DAYS; C ontinue Lisinopril-hydroCHLOROthiazide Tablet, 20-25 MG, TAKE 1 TABLET BY MOUTH EVERY DAY FOR 90 DAYS; C ontinue predniSONE Tablet, 20 MG, TAKE 1 TABLET BY MOUTH EVERY DAY FOR 7 DAYS; C ontinue Terbinafine HCl Cream, 1 %, 1 application, Externally, Once a day; C ontinue Aleve Tablet, [...] * Follow Up: A s Scheduled (Reason: Annual Exam) * Images: * Sign off status: Completed true * Provider: Manas Vega MD Date: 0 01/26/2025 Generated for Jaz ashley/Arlen/Andrew on: 1 07:09 AM EDT History and [...] unremark able, no clubbing, cyanosis or edema, Normal range of motion right knee, no right knee effusion LYMPH NODES: no enlarged lymph no marli,spleen normal RECTAL EXAM: not examined PSYCH: alert, oriented ORAL CAVITY: normal, unremarkable
--- OUTSIDE RECORDS SUMMARY | 2025-05-02 07:10 | XMS_ITS | Patient Health Record ---
Author Organization Damion Vega III, MD Address [address] [place] [address] Care Team Providers Care Grease Maker Head Name Role Phone Dr. Damion Vega III [...] 0.2 - 1.3 BLD Negative Negative - Uric Acid Reviewed date:01/30/2025 07:25:47 PM Interpretation: Performing Lab:[facility], [address] [place] [phone] Notes/Report: Uric Acid 7.5 3.4-7.0 mg/dL Lipid Panel Reviewed date:01/30/2025 07:25:47 PM Interpretation: Performing Lab:[address] [phone] Notes/Report: Triglycerides 100 <150 mg/dL Desirable Triglyceride: [...] low results in patients with liver disease. Complete Blood Count Auto Di ff Reviewed date:05/13/2024 11:48:54 AM Interpretation: Performing Lab:[facility], [address] [place] [phone] Notes/Report: White Blood Count 6.1 4.8-10.8 X10*3/uL [...] NRBC Abs Auto 0.000 0.0-0.012 X10*3/uL Comprehensive [place]. Panel Fa st Reviewed date:05/13/2024 11:48:54 AM Interpretation: Performing Lab:[facility], [address] [place] [phone] Notes/Report: Sodium 140 135-145 mmol/L Potassium 5.0 3.3-5.1 mmol/L Chloride 104 96-108 mmol/L Carbon Dioxide 31 22-29 mmol/L Anion Gap 10 12-20 Blood Urea Nitrogen 32 9-16 mg/dL Creatinine 1.37 0.5-1.4 mg/dL Estimated Glomerular Filt Rate 52 NOTE: For -Mexican individuals, multiply the result by 1.210. Chronic [...] Panel Reviewed date:05/13/2024 11:48:54 AM Interpretation: Performing Lab:[facility], [address] [place] [phone] Notes/Report: Triglycerides 88 <150 mg/dL Desirable Triglyceride: [...] Antigen Reviewed date:05/13/2024 11:48:54 AM Interpretation: Performing Lab:[facility], [address] [place] [phone] Notes/Report: Prostate Specific Antigen 0.35 <0.05-4.0 ng/mL PSA methodology: Perry Alinity i Chemiluminescent Microparticle Immunoassay (CMIA) Vitamin D 25-OH Total Reviewed date:05/13/2024 11:48:54 AM Interpretation: Performing Lab:[facility], [address] [place] [phone] Notes/Report: Vitamin D 25-OH Total 44.9 >30 [...] confirmed with another method such as LC-MS/MS. Complete Blood Count Auto Di ff Reviewed date:01/30/2025 07:25:46 PM Interpretation: Performing Lab:[facility], [address] [place] [phone] Notes/Report: White Blood Count 5.8 4.8-10.8 X10*3/uL Red Blood Count 4.45 4.60-5.80 X10*6/uL Hemoglobin 13.5 14.0-18.0 g/dl Hematocrit 40.4 42.0-52.0 % Mean Corpuscular Volume 90.8 80.0-98.0 fL Mean Corpuscular Hemoglobin 30.3 27.0-33.0 pg Mean Corpuscular HGB Conc 33.4 31.0-36.0 g/dl Red Cell Distribution Width 13.4 11.0-16.0 % Platelet Count 196 160-400 X10*3/uL Mean Platelet Volume 11.2 9.4-12.4 fL Neutrophils Percent Auto 56.7 45-73 % Imm Gran Pct Auto 0.5 0.0-0.4 % Lymphocytes Percent Auto 28.6 20-40 % Monocytes Percent Auto 9.6 2-11 % Eosinophils Percent Auto 3.6 0-4 % Basophils Percent Auto 1.0 0-2 % NRBC Pct Auto 0.0 0.0-0.2 /100WBC Neutrophils Absolute Auto 3.3 2.0-8.3 x10*3/u L Imm Gran Abs Auto 0.03 0.00-0.03 X10*3/uL Lymphocytes Absolute Auto 1.7 1.2-4.9 X10*3/u L Monocytes Absolute Auto 0.6 0.1-1.2 X10*3/uL Eosinophils Absolute Auto 0.2 0.0-0.4 X10*3/u L Basophils Absolute Auto 0.1 0.0-0.2 X10*3/uL NRBC Abs Auto 0.000 0.0-0.012 X10*3/uL Comprehensive Cross[place]. Panel Fa st Reviewed date:01/30/2025 07:25:46 PM Interpretation: Performing Lab:[facility], [address] [place] [phone] Notes/Report: Sodium 138 135-145 mmol/L Potassium 4.6 3.3-5.1 mmol/L Chloride 102 96-108 mmol/L Carbon Dioxide 27 22-29 mmol/L Anion Gap 14 12-20 Blood Urea Nitrogen 33 9-16 mg/dL Creatinine 1.29 0.5-1.4 mg/dL Estimated Glomerular Filt Rate 55 Chronic Kidney Disease: Estimated GFR < 60 mL/min/1.73m2 Severe Kidney Disease: Estimated GFR < 15 mL/min/1.73m2 Glucose Fasting 93 60-99 mg/dL Calcium 10.3 8.4-10.2 mg/dL Bilirubin Total 0.6 0.0-1.0 mg/dL Aspartate Amino Transferase 35 5-37 U/L Alanine Aminotransferase 31 0-40 U/L Total Protein 7.9 6.5-8.0 g/dL Albumin Level 4.4 3.5-5.0 g/dL Alkaline Phosphatase 58 39-117 U/L Prostate Specific Antigen Reviewed date:01/30/2025 07:25:47 PM Interpretation: Performing Lab:[facility], [address] [place] [address], [place] [address] Notes/Report: Prostate Specific Antigen 0.46 <0.05-4.0 ng/mL PSA methodology: Conecta 2 Alinity i Chemiluminescent Microparticle Immunoassay (CMIA) Reason For Referral No Information Medications Medication SIG (Take, Route, Frequency, Duration) Notes Start Date End Date Status Triamcinolone Acetonide 0.1 % 1 application Externally three times a day 02/16/2020 Active Atorvastatin Calcium 10 MG TAKE 1 TABLET BY MOUTH EVERY DAY Active Terbinafine HCl 1 % 1 application Hand Laster ally Once a day 11/23/2023 Active Aleve 220 MG 1 tablet with food o r milk as needed Orally every 12 hrs Active Triamcinolone Acetonide 0.5 % APPLY EXTERNALLY 3 TIMES A DAY FOR 7 DAYS for 40 Active predniSONE 20 MG TAKE 1 TABLET BY SALAZAR TH EVERY DAY FOR 7 DAYS Active Vitamin D3 25 MCG (1000 UT) TAKE 1 TABLE T BY MOUTH EVERY DAY FOR 90 DAYS Active Lisinopril-hydroCHLOROthiaz bronwyn 20-25 MG TAKE 1 TABLET BY MOUTH EVERY DAY FOR 90 DAYS Active Immunizations Vaccine Route Administration Date Status Comme nts Influenza, quad Unknown 05/11/2022 Administered Td (adult) Unknown 11/05/2013 Administered Influenza, quad Unknown 05/13/2020 Administered COVID PFIZER Unknown 12/17/2020 Administered COVID PFIZER Unknown 08/03/2021 Administered COVID PFIZER Unknown 11/26/2020 Administered Influenza, quad Unknown 06/08/2021 Administered Influenza, quad Unknown 05/30/2023 Administered pt rece ived vaccine at [facility] pharmacy Fluzone High-Dose (HD-IIV3) Unknown 06/07/2024 Administered SHINGRIX Unknown 11/01/2024 Administered SHINGRIX Unknown 01/03/2025 Administered Social History Tobacco Use: Social History [...] Status W/U Status Risk Notes Problem Gout (29588894) Gout (274.9) Active confirmed The inflammation in the towel and response to prednisone her typical of gout. It has resolved for the time being. Problem 335231113 Mixed hyperlipidemia (E78.2) Active confirmed A fasting lipid profile has been ordered prior to his next visit. 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 He has no symptoms today. The condition is very mild.I refilled his triamcinolone Problem Gout (20551752) Gout, unspecified (M10.9) Active confirmed No episodes of gout have taken place. A uric acid level will be checked periodically. Problem Benign prostatic hyperplasia (296270190) BPH (benign prostatic hyperplasia) (N40.0) Active confirmed He says he rises from sleep once a night to urinate at most. We discussed lifestyle modification as a way to reduce nocturia. Problem 71653086 Essential hypertension (I10) Active confirmed His blood pressure today is controlled, and no change in his regimen is needed. Problem Right knee pain (555864795068 105) Right knee pain (M25.561) Active confirmed He has occasional right knee pain, but it has improved in the last few months. He was instructed to notify me if it worsens. He will remain active. Problem 28078110 Vitamin D deficiency (E55.9) Active confirmed He was continued on supplementation . Vital Signs Heart Rate 71 /min 01/26/2025 Temperature 98.4 degrees Fahrenheit 01/26/2025 Blood pressure diastolic 71 mm Hg 01/26/2025 Height 67 in 01/26/2025 Blood pressure systolic 109 mm Hg 01/26/2025 Weight 135 lbs 01/26/2025 BMI 21.14 kg/m2 01/26/2025 Encounters Encounter Location Date Provider Diagnosis Damion Vega III, MD [address] [place] [address] [place] [address] 05/27/2024 Damion Vega Essential hypertensi on I10 ; Mixed hyperlipidemia E78.2 ; Pityriasis alba L30.5 ; Gout, unspecified M10.9 and BPH (benign prostatic hyperplasia) N40.0 Damion Vega III, MD [address] [place] [address] [place] [address] 09/26/2024 Damion Vega Essential hypertensi on I10 ; Mixed hyperlipidemia E78.2 ; Pityriasis alba L30.5 ; Right knee pain M25.561 and Gout, unspecified M10.9 Damion Vega III, MD [address] [place] [address] [address] [place] [address] 01/26/2025 Damion Silvia Essential hypertensi on I10 ; Mixed hyperlipidemia E78.2 ; Pityriasis alba L30.5 ; Right knee pain M25.561 and Gout, unspecified M10.9 Assessments Encounter Date Diagnosis (ICD Code) Assessment Notes Treat ment Notes Treatment Clinical Notes 05/27/2024 Mixed hyperlipidemia (ICD-10 - E78.2) A [...] ordered prior to his next visit. 01/26/2025 Essential hypertension (ICD-10 - I10) His blood pressure today is controlled, and no change in his regimen is needed. 05/27/2024 Pityriasis alba (ICD-10 - L30.5) He will be treated as needed. He has no symptoms today. The condition is very mild.I refilled his triamcinolone 09/26/2024 Pityriasis alba (ICD-10 - L30.5) He will be treated as needed. He has no symptoms today. The condition is very mild.I refilled his triamcinolone 01/26/2025 Pityriasis alba (ICD-10 - L30.5) He [...] it worsens. He will remain active. 01/26/2025 Right knee pain (ICD-10 - M25.561) He has occasional right knee pain, but it has improved in the last few months. He was instructed to notify me if it worsens. He will remain active. 05/27/2024 BPH (benign prostati c hyperplasia) (ICD-10 - N40.0) He says he rises from sleep once a night to urinate at most. We discussed lifestyle modification as a way to reduce nocturia. 09/26/2024 Gout, unspecified (ICD-10 - M10.9) No episodes of gout have taken place. A uric acid level will be checked periodically. 01/26/2025 Gout, unspecified (ICD-10 - M10.9) No episodes of gout have taken place. A uric acid level will be checked periodically. Plan Of Treatment Pending Test Test Name Order Date PROFILE, FASTING (COMPREHENSIVE METABOLI C) 01/26/2025 PROFILE, FASTING (COMPREHENSIVE METABOLI C) 03/24/2020 PROFILE, FASTING (COMPREHENSIVE METABOLI C) 12/01/2020 PROFILE, FASTING (COMPREHENSIVE METABOLI C) 05/22/2018 PROFILE, FASTING (COMPREHENSIVE METABOLI C) 10/04/2021 PROFILE, [...] PANEL 07/01/2019 LIPID PANEL 03/24/2020 LIPID PANEL 12/01/2020 LIPID PANEL 05/22/2018 LIPID PANEL 09/25/2022 LIPID PANEL 02/11/2020 LIPID PANEL 09/03/2020 LDH 02/11/2020 PSA, TOTAL 05/25/2023 PSA, TOTAL 12/22/2022 PSA, TOTAL 01/26/2025 PSA, TOTAL 07/05/2020 PSA, TOTAL 11/20/2018 PSA, TOTAL 03/24/2020 PSA, TOTAL 05/23/2022 PSA, TOTAL 05/22/2018 PSA, TOTAL 09/26/2024 PSA, TOTAL 01/29/2024 CBC w DIFF 09/03/2020 CBC w DIFF 10/31/2019 CBC w DIFF 10/04/2021 CBC w DIFF 12/22/2022 CBC w DIFF 07/01/2019 CBC w DIFF 01/26/2025 CBC w DIFF 07/05/2020 CBC w DIFF 11/20/2018 CBC w DIFF 12/01/2020 CBC w DIFF 09/25/2022 CBC w DIFF 03/24/2020 CBC w DIFF 05/23/2022 CBC w DIFF 05/22/2018 CBC w DIFF 06/06/2021 CBC w DIFF 04/05/2021 CBC w DIFF 02/11/2020 PROTHROMBIN TIME (PT, INR) 01/04/2022 PARTIAL THROMBOPLASTIN TIME (PTT) 2021 VITAMIN D 25-OH TOTAL 12/22/2022 VITAMIN D 25-OH TOTAL 11/20/2018 PARATHYROID HORMONE INTACT 07/01/2019 CBC WITH AUTO DIFF 05/25/2023 CBC WITH AUTO DIFF 09/26/2024 CBC WITH AUTO DIFF 01/29/2024 Fibrinogen 01/04/2022 Calcium 04/05/2021 Lipid Panel 06/06/2021 Lipid Panel 01/29/2024 Lipid Panel 04/05/2021 Lipid Panel 05/25/2023 Lipid Panel 10/04/2021 Lipid Panel 01/26/2025 Lipid Panel 05/23/2022 Vitamin D 25-OH Total 05/23/2022 Vitamin D 25-OH Total 01/29/2024 Parathyroid Hormone Related Pr Next Appt Details Provider Name:Damion Vega , 05/29/2025 01:45:00 PM, [address] [place] [address] [address], [place], [address], Insurance Providers Payer Name Payer Address Payer Phone Subscriber Number Group Number Insured Name Patient Relationship to Insured Coverage Start Date Coverage End Date [employer] [place] [address] [address] [place] [address] [id number] Tyler Nunes Self - patient is the insured Medical (General) History Medical History History ICD Code hypertension hyperlipidemia pityriasis alba 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 Regular blood pressure checks. Takes medicine regularly. Surgical History Surgery Date(Month/Year) No history injury to a finger on the left hand requ iring surgery 1999 Hospitalization History Reason Date(Month/Year) No history
[2025-05-02 07:24] LABS: MANUAL DIFF FLAG NO
[2025-05-02 08:12] LABS: Hematocrit 39.5 % (42.0-52.0); Hemoglobin 13.5 g/dl (14.0-18.0); Imm Gran Abs Auto 0.02 X10*3/uL (0.00-0.03); Imm Gran Pct Auto 0.4 % (0.0-0.4); Lymphocytes Absolute Auto 1.9 X10*3/uL (1.2-4.9); Mean Corpuscular HGB Conc 34.2 g/dl (31.0-36.0); Mean Corpuscular Hemoglobin 30.1 pg (27.0-33.0); Mean Corpuscular Volume 88.2 fL (80.0-98.0); NRBC Abs Auto 0.000 X10*3/uL (0.0-0.012); NRBC Pct Auto 0.0 /100WBC (0.0-0.2); Platelet Count 187 X10*3/uL (160-400); Red Blood Count 4.48 X10*6/uL (4.60-5.80); White Blood Count 5.1 X10*3/uL (4.8-10.8)
[2025-05-02 08:42] LABS: Alanine Aminotransferase 28 U/L (0-40); Albumin Level 4.7 g/dL (3.5-5.0); Alkaline Phosphatase 53 U/L (39-117); Anion Gap 13 (12-20); Aspartate Amino Transferase 33 U/L (5-37); Blood Urea Nitrogen 34 mg/dL (9-16); Calcium 10.3 mg/dL (8.4-10.2); Carbon Dioxide 28 mmol/L (22-29); Chloride 103 mmol/L (96-108); Cholesterol 251 mg/dL (<200); Estimated Glomerular Filt Rate 57; HDL Cholesterol 60 mg/dL (>40); Potassium 4.5 mmol/L (3.3-5.1); Sodium 139 mmol/L (135-145); Total Protein 7.8 g/dL (6.5-8.0); Triglycerides 78 mg/dL (<150); Uric Acid 7.5 mg/dL (3.4-7.0)
[2025-05-02 09:02] LABS: Prostate Specific Antigen 0.36 ng/mL (<0.05-4.0)
== END 2025-05-02 07:07 | disposition home or self-care (01) ==
LOC: HO.LAB 07:06
PROVIDERS: PCP Internal Medicine Medical Oncology; Visit Provider Internal Medicine Medical Oncology
DX: N40.0 Benign prostatic hyperplasia without lower urinary tract symptoms (principal); E55.9 Vitamin D deficiency, unspecified; E78.2 Mixed hyperlipidemia; I10 Essential (primary) hypertension; M10.9 Gout, unspecified; Z12.5 Encounter for screening for malignant neoplasm of prostate
CPT/HCPCS: 36415; 80053; 80061; 84153; 84550; 85025